=== PATIENT | female | born 1955 | race Caucasian/White ===

== ENCOUNTER 2019-11-12 16:45 | Inpatient (IN) ==
[2019-11-12 20:23] LABS: Basophils # (auto) 0.02 K/uL (0-0.2); Basophils % (auto) 0.2 %; Eosinophils # (auto) 0.32 K/uL (0-0.5); Eosinophils % (auto) 2.7 %; Hematocrit (blood only) 46.2 % (37-47); Hemoglobin 15.6 g/dL (12.0-16.0); Immature Granulocytes # (auto) 0.02 K/uL (0.00-0.02); Immature Granulocytes % (auto) 0.2 %; Lymphocytes # (auto) 3.11 K/uL (1.2-3.4); Lymphocytes % (auto) 26.6 %; Mean Corpuscular Hemoglobin 29.8 pg (25-34); Mean Corpuscular Hgb Conc 33.8 g/dL (32-36); Mean Corpuscular Volume 88.2 fL (80-100); Mean Platelet Volume 10.3 fL (7.4-10.4); Monocytes # (auto) 0.64 K/uL (0.11-0.59); Monocytes % (auto) 5.5 %; Neutrophils # (auto) 7.57 K/uL (1.4-6.5); Neutrophils % (auto) 64.8 %; Platelet Count 276 K/uL (130-400); RDW Coefficient of Variation 13.1 % (11.5-14.5); RDW Standard Deviation 42.3 fL (36.4-46.3); Red Blood Count 5.24 M/uL (4.2-5.4); White Blood Count 11.68 K/uL (4.8-10.8)
--- NOTE | 2019-11-12 20:24 | XRay Report ---
SINGLE VIEW CHEST CLINICAL HISTORY: Dyspnea. FINDINGS: An AP, portable, upright chest radiograph is obtained. No prior studies are available for c omparison at the time of dictation. The examination is degraded by portable technique and apical lord otic positioning. The heart is top normal for projection. The mediastinal contour is within normal li mits. The lungs and pleural spaces are clear. No pneumothorax is seen. The skeletal structures are os teopenic. The bony thorax is grossly intact. IMPRESSION: No active disease in the chest. ACT 112: Negative or not required by law. Electronically signed by: Jelani Kothari M.D. 11/12/2019 8:22 PM
[2019-11-12 20:41] LABS: Alanine Aminotransferase 56 U/L (12-78); Albumin Level 3.6 gm/dl (3.4-5.0); Aspartate Aminotransferase 40 U/L (15-37); Blood Urea Nitrogen 15 mg/dl (7-18); Carbon Dioxide 28 mmol/L (21-32); Chloride 107 mmol/L (98-107); Creatinine Clr Calc Pharmacy 41.5 ml/min; Est GFR (African American) 46.9; Est GFR (Non-African American) 40.4; Glucose 167 mg/dl (70-99); Magnesium 1.5 mg/dl (1.8-2.4); Sodium 143 mmol/L (136-145)
[2019-11-12 20:46] LABS: Albumin Globulin Ratio 0.8 (0.9-2); Alkaline Phosphatase 104 U/L (45-117); Bilirubin,Total 0.8 mg/dl (0.2-1); Globulin 4.7 gm/dl (2.5-4.0); NT Pro B Type Natriuretic Pept 62 pg/ml (0-900); Total Protein 8.3 gm/dl (6.4-8.2); Troponin I < 0.015 ng/ml (0-0.045)
[2019-11-12 20:56] LABS: D Dimer 3590 ug/L FEU (0-500)
--- NOTE | 2019-11-12 21:21 | Emergency Department Note ---
History of Present Illness General Chief Complaint: Shortness of Breath/Dyspnea Stated Complaint: SHORT OF BREATH - FATIGUE - HEAVINESS IN CHEST History of Present Illness Maximum Pain Intensity: 5 HPI Narrative: This patient is a 64-year-old female who presents the emergency department with her daughter for evaluation of dyspnea on exertion that has been getting progressively worse throughout the week. She denies any chest pain. No dizziness no heart palpitations. No sweating or diaphoresis reported. She has been eating and drinking normally. No fever or cough. She denies any known history of cardiac disease. The patient does not smoke. She reports that she has never had a stress test. No cardiac disease reported in her immediate family. Home Medications Home Medications Medication Instructions Recorded Confirmed Type atorvastatin 20 mg PO DAILY 11/12/19 11/12/19 History lisinopril-hydrochlorothiazide 1 - 2 tab PO DAILY 11/12/19 11/12/19 History venlafaxine 150 mg PO DAILY 11/12/19 11/12/19 History enoxaparin [Lovenox] 100 mg SQ Q12H #6 ml 11/15/19 Rx glipizide 5 mg PO DAILY@0800 30 Days #30 tab 11/15/19 Rx warfarin [Coumadin] 7.5 mg PO DAILY@1600 15 Days #15 11/15/19 Rx tab Allergies Allergy/AdvReac Type Severity Reaction Status Date / Time No Known Allergies Allergy Unverified 11/12/19 20:22 Past Med/Surg History Medical History Hyperlipidemia Hypertension Social History Smoking Status: Former smoker Hx Alcohol Use: No Preferred Language: Slovak Communication Ability: Effective [employer]fection[employer] D[employer] Machine Operator Required: No Beliefs That Will Affect Care: None Current Living Situation: Alone Other Information That Helps Us Care for You: No Feels Safe at Home: Yes Review of Systems A total of 10 systems reviewed and were otherwise negative Physical Exam Vital Signs: Vital Signs - 24 hr 11/12/19 16:55 11/12/19 20:14 11/12/19 20:28 Temperature 36.9 C Temperature Source Oral Pulse Rate 96 H 87 87 Pulse Rate from Sp O2 Sensor 88 87 Respiratory Rate 21 19 16 Respiratory Effort / Characteristics Non-Labored Sponta neous Respiratory Depth Normal Respiratory Patter n Regular Blood Pressure 184/90 H 192/86 H Blood Pressure Antonella n 121 113 Blood Pressure Pos ition Sitting Pulse Oximetry 93 94 95 Oxygen Delivery Me thod Room Air Sepsis Recent Feve r Within 48 Hours No Sepsis New/Unexpla ined Change in Men gabby Status N/A Sepsis Action Take n by Nursing No Action Required 11/12/19 20:30 11/12/19 20:31 11/12/19 21:00 Temperature Temperature Source Pulse Rate 86 86 87 Pulse Rate from Sp O2 Sensor 86 86 86 Respiratory Rate 13 17 18 Respiratory Effort / Characteristics Respiratory Depth Respiratory Patter n Blood Pressure 148/92 H 149/94 H Blood Pressure Antonella n 113 111 Blood Pressure Pos ition Pulse Oximetry 94 95 95 Oxygen Delivery Me thod Sepsis Recent Feve r Within 48 Hours Sepsis New/Unexpla ined Change in Men gabby Status Sepsis Action Take n by Nursing 11/12/19 21:01 11/12/19 21:32 11/12/19 21:33 Temperature Temperature Source Pulse Rate 83 107 H 89 Pulse Rate from Sp O2 Sensor 83 101 H 89 Respiratory Rate 18 20 19 Respiratory Effort / Characteristics Respiratory Depth Respiratory Patter n Blood Pressure 181/107 H Blood Pressure Antonella n 116 Blood Pressure Pos ition Pulse Oximetry 94 93 92 Oxygen Delivery Me thod Sepsis Recent Feve r Within 48 Hours Sepsis New/Unexpla ined Change in Men gabby Status Sepsis Action Take n by Nursing 11/12/19 22:00 11/12/19 22:30 Temperature Temperature Source Pulse Rate 87 89 Pulse Rate from Sp O2 Sensor 87 87 Respiratory Rate 16 16 Respiratory Effort / Characteristics Respiratory Depth Respiratory Patter n Blood Pressure Blood Pressure Antonella n Blood Pressure Pos ition Pulse Oximetry 94 94 Oxygen Delivery Me thod Sepsis Recent Feve r Within 48 Hours Sepsis New/Unexpla ined Change in Men gabby Status Sepsis Action Take n by Nursing Constitutional: WD/WN, vitals as above Eyes: EOM intact bilaterally ENMT: external ear and nose normal, oropharynx normal Neck: trachea midline Respiratory: normal respiratory effort, lungs clear to auscultation Cardiovascular: RRR, no murmur, no edema Gastrointestinal (Abdomen): normal bowel sounds, soft, nontender, no hepatosplenomegaly Musculoskeletal: no cyanosis or clubbing, extremities motor strength 5/5 Skin: no rashes, warm and dry Neurologic: Alert and oriented x3. No focal motor deficits. Psychiatric: Acting appropriately Course Course Patient was seen and examined Vital signs including blood pressure were reviewed medications list was verified with patient Labs were obtained, and a saline lock was established An EKG was performed and reviewed. The patient was put on a monitor. An order was placed for continuous cardiac monitoring. The monitor shows a rate of 80 with normal sinus rhythm. Imaging was performed and reviewed Stat read contacted my supervising physician. He reevaluated the patient who was stable. They discussed the results. He voiced understanding The case was discussed with the [facility] hospitalist. They kindly agreed to evaluate the patient for likely inpatient admission. At this point, they did not want any anticoagulation started. The case was discussed with the hospitalist team. They agreed to evaluate the patient for likely inpatient management. Consultations Consultation #1: [facility] hospitalist group Administered Medications Discontinued Medications Amlodipine Besylate (Norvasc) 2.5 mg PO NOW [facility] Stop: 11/12/19 23:16 Last Admin: 11/13/19 00:42 Dose: 2.5 mg Documented by: [id number] Amlodipine Besylate (Norvasc) 2.5 mg PO [facility] Stop: 12/13/19 20:59 Last Admin: 11/14/19 20:37 Dose: 2.5 mg Documented by: [id number] Admin: 11/13/19 20:21 Dose: 2.5 mg Documented by: [id number] Atorvastatin Calcium (Lipitor) 20 mg PO DAILY [facility] Stop: 12/13/19 08:59 Last Admin: 11/15/19 07:58 Dose: 20 mg Documented by: [id number] Admin: 11/14/19 08:26 Dose: 20 mg Documented by: [id number] Admin: 11/13/19 08:59 Dose: 20 mg Documented by: [id number] Enoxaparin Sodium (Lovenox) 100 mg SQ ONE ONE Stop: 11/15/19 16:01 Last Admin: 11/15/19 15:58 Dose: 100 mg Documented by: [id number] Glipizide (Glucotrol) 5 mg PO DAILY@0800 [facility] Stop: 12/13/19 16:59 Last Admin: 11/15/19 07:58 Dose: 5 mg Documented by: [id number] Admin: 11/14/19 08:24 Dose: 5 mg Documented by: [id number] Admin: 11/13/19 17:35 Dose: 5 mg Documented by: [id number] Heparin Sodium/Dextrose () 1 ea IV Q15M [facility]; Protocol Stop: 12/12/19 23:46 Last Admin: 11/13/19 02:43 Dose: Not Given Documented by: [id number] Admin: 11/13/19 02:43 Dose: Not Given Documented by: [id number] Admin: 11/13/19 02:12 Dose: Not Given Documented by: [id number] Admin: 11/13/19 02:11 Dose: Not Given Documented by: [id number] Admin: 11/13/19 01:02 Dose: Not Given Documented by: [id number] Heparin Sodium/Dextrose (Heparin Sodium/Dextrose) Confirm Administered Dose 25,000 units IV .STK-MED ONE Stop: 11/13/19 00:31 Last Admin: 11/13/19 00:41 Dose: 23 ml Documented by: [id number] Cosigned by: [id number] Magnesium Sulfate/Dextrose (Magnesium Sulfate / D5w) 1 gm in 100 mls @ 100 mls/hr IV NOW STA Stop: 11/12/19 22:25 Last Infusion: 11/12/19 23:40 Dose: 0 mls/hr Documented by: [id number] Admin: 11/12/19 22:02 Dose: 100 mls/hr Documented by: [id number] Heparin Sodium/Dextrose (Heparin Sodium/Dextrose) 25,000 units in 500 mls @ 23 mls/hr IV .[id number] [facility]; Protocol Stop: 11/15/19 14:00 Last Titration: 11/15/19 13:48 Dose: 0 units/hr, 0 mls/hr Documented by: [id number] Cosigned by: [id number] Titration: 11/15/19 06:53 Dose: 1,150 units/hr, 23 mls/hr Documented by: [id number] Cosigned by: [id number] Titration: 11/14/19 22:55 Dose: 1,150 units/hr, 23 mls/hr Documented by: [id number] Cosigned by: [id number] Admin: 11/14/19 19:22 Dose: 1,150 units/hr, 23 mls/hr Documented by: [id number] Cosigned by: [id number] Titration: 11/14/19 18:54 Dose: 1,150 units/hr, 23 mls/hr Documented by: [id number] Cosigned by: [id number] Titration: 11/14/19 15:08 Dose: 1,150 units/hr, 23 mls/hr Documented by: [id number] Cosigned by: [id number] Titration: 11/14/19 07:22 Dose: 1,150 units/hr, 23 mls/hr Documented by: [id number] Cosigned by: [id number] Titration: 11/14/19 06:56 Dose: 1,150 units/hr, 23 mls/hr Documented by: [id number] Cosigned by: [id number] Titration: 11/13/19 22:46 Dose: 1,150 units/hr, 23 mls/hr Documented by: [id number] Cosigned by: [id number] Admin: 11/13/19 21:09 Dose: 1,150 units/hr, 23 mls/hr Documented by: [id number] Cosigned by: [id number] Titration: 11/13/19 21:09 Dose: 1,150 units/hr, 23 mls/hr Documented by: [id number] Cosigned by: [id number] Titration: 11/13/19 19:10 Dose: 1,150 units/hr, 23 mls/hr Documented by: [id number] Cosigned by: [id number] Titration: 11/13/19 15:55 Dose: 1,150 units/hr, 23 mls/hr Documented by: [id number] Cosigned by: [id number] Titration: 11/13/19 07:54 Dose: 1,300 units/hr, 26 mls/hr Documented by: [id number] Cosigned by: [id number] Titration: 11/13/19 07:08 Dose: 1,150 units/hr, 23 mls/hr Documented by: [id number] Cosigned by: [id number] Admin: 11/13/19 01:01 Dose: Not Given Documented by: [id number] Admin: 11/13/19 01:00 Dose: 1,150 units/hr, 23 mls/hr Documented by: [id number] Cosigned by: [id number] Lactated Ringer's (Lr) 1,000 mls @ 60 mls/hr IV .[id number] ONE Stop: 11/13/19 18:46 Last Infusion: 11/13/19 05:16 Dose: 0 mls/hr Documented by: [id number] Admin: 11/13/19 02:27 Dose: 60 mls/hr Documented by: [id number] Magnesium Sulfate/Dextrose (Magnesium Sulfate / D5w) 1 gm in 100 mls @ 50 mls/hr IV ONE ONE Stop: 11/13/19 04:06 Last Infusion: 11/13/19 04:42 Dose: 0 mls/hr Documented by: [id number] Admin: 11/13/19 02:24 Dose: 50 mls/hr Documented by: [id number] Ceftriaxone Sodium 2,000 mg/ (Dextrose) 70 mls @ 100 mls/hr IV Q24H [facility]; Protocol Stop: 11/23/19 05:29 Last Infusion: 11/15/19 06:42 Dose: 0 mls/hr Documented by: [id number] Admin: 11/15/19 05:50 Dose: 100 mls/hr Documented by: [id number] Infusion: 11/14/19 06:09 Dose: 0 mls/hr Documented by: [id number] Admin: 11/14/19 05:25 Dose: 100 mls/hr Documented by: [id number] Infusion: 11/13/19 06:09 Dose: 0 mls/hr Documented by: [id number] Admin: 11/13/19 05:39 Dose: 100 mls/hr Documented by: [id number] Potassium Chloride/Sodium Chloride (Normal Saline W/20 Meq Kcl) 20 meq in 1,000 mls @ 50 mls/hr IV .Q20H ONE Stop: 11/14/19 00:55 Last Infusion: 11/14/19 01:42 Dose: 0 mls/hr Documented by: [id number] Admin: 11/13/19 05:39 Dose: 50 mls/hr Documented by: [id number] Heparin Sodium (Porcine) 3,000 (units/ Syringe) 3 mls @ 10 mls/min IV ONE ONE Stop: 11/13/19 08:18 Last Admin: 11/13/19 08:55 Dose: 10 mls/min Documented by: [id number] Cosigned by: [id number] Insulin Aspart (Novolog Flexpen) 0 units SC ACHS [facility] Stop: 12/13/19 02:06 Last Admin: 11/13/19 12:24 Dose: 5 units Documented by: [id number] Cosigned by: [id number] Admin: 11/13/19 08:56 Dose: 6 units Documented by: [id number] Cosigned by: [id number] Admin: 11/13/19 02:28 Dose: 3 units Documented by: [id number] Cosigned by: [id number] Insulin Glargine (Lantus Solostar Pen) 10 units SC ONE ONE Stop: 11/13/19 07:01 Last Admin: 11/13/19 07:47 Dose: 10 units Documented by: [id number] Cosigned by: [id number] Insulin Glargine (Lantus Solostar Pen) 10 units SC BID [facility] Stop: 12/13/19 22:59 Last Admin: 11/15/19 07:58 Dose: 10 units Documented by: [id number] Cosigned by: [id number] Admin: 11/14/19 20:38 Dose: 10 units Documented by: [id number] Cosigned by: [id number] Admin: 11/14/19 08:26 Dose: 10 units Documented by: [id number] Cosigned by: [id number] Admin: 11/13/19 23:08 Dose: 10 units Documented by: [id number] Cosigned by: [id number] Ioversol (Optiray 320 125ml) 119 ml IV ONCE PRN PRN Reason: Interaction Checking Stop: 11/16/19 21:23 Last Admin: 11/12/19 21:25 Dose: 119 ml Documented by: [id number] Miscellaneous (Stop Order) 1 ea N/A ONE ONE Stop: 11/15/19 14:01 Last Admin: 11/15/19 13:48 Dose: 1 ea Documented by: [id number] Venlafaxine HCl (Effexor Extended Release) 150 mg PO NOW STA Stop: 11/12/19 23:45 Last Admin: 11/13/19 00:42 Dose: 150 mg Documented by: [id number] Venlafaxine HCl (Effexor Extended Release) 150 mg PO HS [facility] Stop: 12/13/19 20:59 Last Admin: 11/14/19 20:37 Dose: 150 mg Documented by: [id number] Admin: 11/13/19 20:21 Dose: 150 mg Documented by: [id number] Warfarin Sodium (Coumadin) 7.5 mg PO DAILY@1600 [facility] Stop: 12/15/19 15:59 Last Admin: 11/15/19 15:58 Dose: 7.5 mg Documented by: [id number] Warfarin Sodium (Coumadin) 7.5 mg PO NOW ONE Stop: 11/14/19 17:01 Last Admin: 11/14/19 17:15 Dose: 7.5 mg Documented by: [id number] Medical Decision Making Differential Diagnosis Differential diagnosis: Pulmonary embolus, infectious etiology, acute myocardial infarction, cardiac arrhythmia, anemia, thyroid abnormality, pneumothorax, pneumonia, bronchitis, pericarditis, electrolyte imbalance, among others This patient is a pleasant 64-year-old female presents emergency department complaining of shortness of breath on exertion for the last week. On exam, her vital signs are stable. EKG did not show any acute signs of ischemia or infarction. It was compared to a prior EKG, which appears unchanged. Troponin is negative. The d-dimer was significantly elevated. For this reason, we proceeded with a CT to rule out PE. The CAT scan is consistent with bilateral pulmonary emboli. They were fairly extensive. For this reason, the hospitalist was consulted. They would likely admit the patient for anticoagulation and monitoring. Laboratory Data Result diagrams: 11/13/19 06:48 11/13/19 06:48 Lab Results 11/12/19 11/12/19 11/12/19 Range/Units 20:10 20:10 20:10 WBC 11.68 H (4.8-10.8) K/uL RBC 5.24 (4.2-5.4) M/uL Hgb 15.6 (12.0-16.0) g/dL Hct 46.2 (37-47) % MCV 88.2 (80-100) fL MCH 29.8 (25-34) pg MCHC 33.8 (32-36) g/dL RDW Std Deviation 42.3 (36.4-46.3) fL RDW Coeff of Jenn 13.1 (11.5-14.5) % Plt Count 276 (130-400) K/uL MPV 10.3 (7.4-10.4) fL Immature Gran % (Auto) 0.2 % Neut % (Auto) 64.8 % Lymph % (Auto) 26.6 % [place] % (Auto) 5.5 % Eos % (Auto) 2.7 % Baso % (Auto) 0.2 % Neut # (Auto) 7.57 H (1.4-6.5) K/uL Lymph # (Auto) 3.11 (1.2-3.4) K/uL [place] # (Auto) 0.64 H (0.11-0.59) K/uL Eos # (Auto) 0.32 (0-0.5) K/uL Baso # (Auto) 0.02 (0-0.2) K/uL Immature Gran # (Auto) 0.02 (0.00-0.02) K/uL APTT (21.0-31.0) Seconds PTT Ratio D-Dimer 3590 H* (0-500) ug/L FEU Sodium 143 (136-145) mmol/L Potassium 4.0 (3.5-5.1) mmol/L Chloride 107 (98-107) mmol/L Carbon Dioxide 28 (21-32) mmol/L Anion Gap 8.0 (3-11) BUN 15 (7-18) mg/dl Creatinine 1.36 H (0.6-1.2) mg/dl Est Cr Clr Drug Dosing 41.5 ml/min Est GFR ( Amer) 46.9 Est GFR (Non-Af Amer) 40.4 BUN/Creatinine Ratio 11.0 (10-20) Glucose 167 H (70-99) mg/dl Calcium 10.0 (8.5-10.1) mg/dl Magnesium 1.5 L (1.8-2.4) mg/dl Total Bilirubin 0.8 (0.2-1) mg/dl AST 40 H (15-37) U/L ALT 56 (12-78) U/L Alkaline Phosphatase 104 (45-117) U/L Troponin I < 0.015 (0-0.045) ng/ml NT-Pro-B Natriuret Pep 62 (0-900) pg/ml Total Protein 8.3 H (6.4-8.2) gm/dl Albumin 3.6 (3.4-5.0) gm/dl Globulin 4.7 H (2.5-4.0) gm/dl Albumin/Globulin Ratio 0.8 L (0.9-2) Urine Color Urine Appearance (Clear) Urine pH (4.5-7.5) Ur Specific [place] (1.000-1.030) Urine Protein (Negative) Urine Glucose (UA) (Negative) Urine Ketones (Negative) Urine Blood (Negative) Urine Nitrite (Negative) Urine Bilirubin (Negative) Urine Urobilinogen (Negative) Ur Leukocyte Esterase (Negative) Urine WBC (Auto) (0-5) /hpf Urine RBC (Auto) (0-4) /hpf U Hyaline Cast (Auto) (0-5) /lpf U Epithel Cells (Auto) (0-5) /lpf Urine Bacteria (Auto) (Negative) 11/12/19 11/12/19 Range/Units 20:10 20:10 WBC (4.8-10.8) K/uL RBC (4.2-5.4) M/uL Hgb (12.0-16.0) g/dL Hct (37-47) % MCV (80-100) fL MCH (25-34) pg MCHC (32-36) g/dL RDW Std Deviation (36.4-46.3) fL RDW Coeff of Jenn (11.5-14.5) % Plt Count (130-400) K/uL MPV (7.4-10.4) fL Immature Gran % (Auto) % Neut % (Auto) % Lymph % (Auto) % [place] % (Auto) % Eos % (Auto) % Baso % (Auto) % Neut # (Auto) (1.4-6.5) K/uL Lymph # (Auto) (1.2-3.4) K/uL [place] # (Auto) (0.11-0.59) K/uL Eos # (Auto) (0-0.5) K/uL Baso # (Auto) (0-0.2) K/uL Immature Gran # (Auto) (0.00-0.02) K/uL APTT 24.8 (21.0-31.0) Seconds PTT Ratio 0.9 D-Dimer (0-500) ug/L FEU Sodium (136-145) mmol/L Potassium (3.5-5.1) mmol/L Chloride (98-107) mmol/L Carbon Dioxide (21-32) mmol/L Anion Gap (3-11) BUN (7-18) mg/dl Creatinine (0.6-1.2) mg/dl Est Cr Clr Drug Dosing ml/min Est GFR ( Amer) Est GFR (Non-Af Amer) BUN/Creatinine Ratio (10-20) Glucose (70-99) mg/dl Calcium (8.5-10.1) mg/dl Magnesium (1.8-2.4) mg/dl Total Bilirubin (0.2-1) mg/dl AST (15-37) U/L ALT (12-78) U/L Alkaline Phosphatase (45-117) U/L Troponin I (0-0.045) ng/ml NT-Pro-B Natriuret Pep (0-900) pg/ml Total Protein (6.4-8.2) gm/dl Albumin (3.4-5.0) gm/dl Globulin (2.5-4.0) gm/dl Albumin/Globulin Ratio (0.9-2) Urine Color Yellow Urine Appearance Clear (Clear) Urine pH 5.0 (4.5-7.5) Ur Specific [place] 1.024 (1.000-1.030) Urine Protein Trace H (Negative) Urine Glucose (UA) Negative (Negative) Urine Ketones Trace H (Negative) Urine Blood Trace H (Negative) Urine Nitrite Negative (Negative) Urine Bilirubin Negative (Negative) Urine Urobilinogen Negative (Negative) Ur Leukocyte Esterase 1+ H (Negative) Urine WBC (Auto) >30 H (0-5) /hpf Urine RBC (Auto) 5-10 H (0-4) /hpf U Hyaline Cast (Auto) 5-10 H (0-5) /lpf U Epithel Cells (Auto) 10-20 H (0-5) /lpf Urine Bacteria (Auto) Negative (Negative) MDM Narrative see above Impression & Plan Pulmonary emboli Discharge Plan Visit Data *Final* Discharge Date/Time: 11/13/19 01:36 Chief Complaint: Shortness of Breath/Dyspnea Stated Complaint: SHORT OF BREATH - FATIGUE - HEAVINESS IN CHEST ED Provider: Edwin Dior ED Midlevel Provider: Bharti Rogers Discharge Problem: Pulmonary emboli Patient Disposition: Admitted As Inpatient Condition: Good Discharge Instructions Interventions: ED Discharge Assessment Last Done: 11/13/19 01:36
[2019-11-12] MEDS ORDERED: OPTIRAY 320 125ml IV PRN (21:24)
[2019-11-12] MEDS ORDERED: MAGNESIUM SULFATE / D5W 1 GM/100 ML BAG IV STA (21:26)
[2019-11-12 23:05] LABS: Partial Thromboplastin Ratio 0.9; Partial Thromboplastin Time 24.8 Seconds (21.0-31.0)
[2019-11-12] MEDS ORDERED: AMLODIPINE BESYLATE 5 MG TAB PO STA (23:15)
[2019-11-12 23:29] LABS: Appearance Urine Clear (Clear); Bacteria Urine Automated Negative (Negative); Bilirubin Urine Negative (Negative); Blood Urine Trace (Negative); Color Urine Yellow; Glucose Urine UA Negative (Negative); Ketones Urine Trace (Negative); Leukocyte Esterase Urine 1+ (Negative); Nitrite Urine Negative (Negative); Protein Urine Trace (Negative); Specific Gravity Urine 1.024 (1.000-1.030); Urobilinogen Urine Negative (Negative); WBC Urine Automated >30 /hpf (0-5)
[2019-11-12] MEDS ORDERED: VENLAFAXINE HCL XR 150 MG CAPXR PO STA (23:44)
--- NOTE | 2019-11-12 23:46 | History & Physical Report ---
Date of Service November 12, 2019 Assessment & Plan (1) Pulmonary emboli: First occurrence Unprovoked event Rule out LE clot origin Rule out hypercoagulable state hypertension, slightly elevated secondary discomfort ARF, mild clinical dehydration given ketonuria DM 2 on oral medications, well-controlled as of last hemoglobin A1c of 7 last 2017 anxiety/mood disorder, at baseline Complicated UTI, no sepsis Medical telemetry LE venous Dopplers Hypercoagulable work-up prior to IV heparin initiation Defer discussion regarding choice of oral anticoagulation between AM provider and patient. (Patient interested in NOAC tx). Monitor creatinine response to IVF, hold MOISES inhibitor, home diuretic until creatinine back to baseline Amlodipine daily while above BP meds on hold due to kidney dysfunction. Follow urine cultures, IV Ceftriaxone Basal insulin, ISS BG goal [id number], update hemoglobin A1c DVT prophylaxis with IV heparin Full code Text document was generated using [employer] voice recognition software. It may contain grammatical or spelling errors. Kindly contact undersigned for clarification of any documentation item in question. History of Present Illness Chief Complaint: Shortness of breath, shoulder blade pain Primary Care Provider: Nuria Ward PA-C History obtained from patient, family, and records. Medical history significant for hypertension, hyperlipidemia, DM 2 on oral medications, anxiety/mood disorder as per records, past tobacco abuse. Patient short of breath the last week especially on exertion with back pain going to her shoulder blades. Usual dry cough symptoms without flulike symptoms. Feeling off. Patient with bladder discomfort symptoms without fever chills for about a few weeks. No headache. Not moving a lot at home as per patient secondary to pandemic. Patient brought by daughter to the emergency room. Medical History as above 2009 normal colonoscopy 2014 normal mammogram Surgical History : section Family History : Heart disease, ovarian cancer; no blood clots Personal/Social history :Past tobacco abuse, occasional EtOH intake, retired senior care hotel receptionist Allergies Allergy/AdvReac Type Severity Reaction Status Date / Time No Known Allergies Allergy Unverified 11/12/19 20:22 Home Medications Home Medications Medication Instructions Recorded Confirmed Type atorvastatin 20 mg PO DAILY 11/12/19 11/12/19 History lisinopril-hydrochlorothiazide 1 - 2 tab PO DAILY 11/12/19 11/12/19 History venlafaxine 150 mg PO DAILY 11/12/19 11/12/19 History Past Med/Surg History Medical History Hyperlipidemia Hypertension Social History Smoking Status: Former smoker Hx Alcohol Use: No Preferred Language: Maori Communication Ability: Effective Process Control Manager Required: No Beliefs That Will Affect Care: None Current Living Situation: Alone Other Information That Helps Us Care for You: No Feels Safe at Home: Yes Review of Systems Review of Systems: As per HPI, all 10 systems reviewed, all other ROS negative Physical Exam Physical Exam: GENERAL: Slightly anxious, morbidly obese, no respiratory distress SKIN: Normal color, warm HEENT: Bespectacled, [place] palpebral conjunctivae, no ptosis, dry buccal mucosa NECK : Supple, short neck, no tenderness CHEST : CTA, no tenderness HEART : RRR, no obvious murmurs ABDOMEN: Some distention, nontender EXTREMITIES : Minimal LE swelling, no LE tenderness, no other conspicuous deformities noted NEUROLOGIC : Coherent, no facial asymmetry, no other gross focality Results & Data Results & Data ([facility]) Vital Signs (Past 12 Hours) Vital Signs Temp Pulse Resp BP Pulse Ox 11/12/19 22:30 89 16 94 11/12/19 22:00 87 16 94 11/12/19 21:33 89 19 181/107 H 92 11/12/19 21:32 107 H 20 93 11/12/19 21:01 83 18 94 11/12/19 21:00 87 18 149/94 H 95 11/12/19 20:31 86 17 95 11/12/19 20:30 86 13 148/92 H 94 11/12/19 20:28 87 16 95 11/12/19 20:14 87 19 192/86 H 94 11/12/19 16:55 36.9 C 96 H 21 184/90 H 93 Laboratory Results Laboratory Results WBC 11.68 K/uL (4.8-10.8) H 11/12/19 20:10 RBC 5.24 M/uL (4.2-5.4) 11/12/19 20:10 Hgb 15.6 g/dL (12.0-16.0) 11/12/19 20:10 Hct 46.2 % (37-47) 11/12/19 20:10 MCV 88.2 fL (80-100) 11/12/19 20:10 MCH 29.8 pg (25-34) 11/12/19 20:10 MCHC 33.8 g/dL (32-36) 11/12/19 20:10 RDW Std Deviation 42.3 fL (36.4-46.3) 11/12/19 20:10 RDW Coeff of Jenn 13.1 % (11.5-14.5) 11/12/19 20: Plt Count 276 K/uL (130-400) 11/12/19 20:10 MPV 10.3 fL (7.4-10.4) 11/12/19 20:10 Immature Gran % (Auto) 0.2 % 11/12/19 20:10 Neut % (Auto) 64.8 % 11/12/19 20:10 Lymph % (Auto) 26.6 % 11/12/19 20:10 [place] % (Auto) 5.5 % 11/12/19 20:10 Eos % (Auto) 2.7 % 11/12/19 20:10 Baso % (Auto) 0.2 % 11/12/19 20:10 Neut # (Auto) 7.57 K/uL (1.4-6.5) H 11/12/19 20:10 Lymph # (Auto) 3.11 K/uL (1.2-3.4) 11/12/19 20:10 [place] # (Auto) 0.64 K/uL (0.11-0.59) H 11/12/19 20:10 Eos # (Auto) 0.32 K/uL (0-0.5) 11/12/19 20:10 Baso # (Auto) 0.02 K/uL (0-0.2) 11/12/19 20:10 Immature Gran # (Auto) 0.02 K/uL (0.00-0.02) 11/12/19 20:10 APTT 24.8 Seconds (21.0-31.0) 11/12/19 20:10 PTT Ratio 0.9 11/12/19 20:10 D-Dimer 3590 ug/L FEU (0-500) H* 11/12/19 20:10 Sodium 143 mmol/L (136-145) 11/12/19 20:10 Potassium 4.0 mmol/L (3.5-5.1) 11/12/19 20:10 Chloride 107 mmol/L (98-107) 11/12/19 20:10 Carbon Dioxide 28 mmol/L (21-32) 11/12/19 20:10 Anion Gap 8.0 (3-11) 11/12/19 20:10 BUN 15 mg/dl (7-18) 11/12/19 20:10 Creatinine 1.36 mg/dl (0.6-1.2) H 11/12/19 20:10 Est Cr Clr Drug Dosing 41.5 ml/min 11/12/19 20:10 Est GFR ( Amer) 46.9 11/12/19 20:10 Est GFR (Non-Af Amer) 40.4 11/12/19 20:10 BUN/Creatinine Ratio 11.0 (10-20) 11/12/19 20:10 Glucose 167 mg/dl (70-99) H 11/12/19 20:10 Calcium 10.0 mg/dl (8.5-10.1) 11/12/19 20: Magnesium 1.5 mg/dl (1.8-2.4) L 11/12/19 20:10 Total Bilirubin 0.8 mg/dl (0.2-1) 11/12/19 20:10 AST 40 U/L (15-37) H 11/12/19 20:10 ALT 56 U/L (12-78) 11/12/19 20:10 Alkaline Phosphatase 104 U/L (45-117) 11/12/19 20:10 Troponin I < 0.015 ng/ml (0-0.045) 11/12/19 20:10 NT-Pro-B Natriuret Pep 62 pg/ml (0-900) 11/12/19 20:10 Total Protein 8.3 gm/dl (6.4-8.2) H 11/12/19 20:10 Albumin 3.6 gm/dl (3.4-5.0) 11/12/19 20:10 Globulin 4.7 gm/dl (2.5-4.0) H 11/12/19 20:10 Albumin/Globulin Ratio 0.8 (0.9-2) L 11/12/19 20:10 Urine Color Yellow 11/12/19 20:10 Urine Appearance Clear (Clear) 11/12/19 20:10 Urine pH 5.0 (4.5-7.5) 11/12/19 20:10 Ur Specific [place] 1.024 (1.000-1.030) 11/12/19 20:10 Urine Protein Trace (Negative) H 11/12/19 20:10 Urine Glucose (UA) Negative (Negative) 11/12/19 20:10 Urine Ketones Trace (Negative) H 11/12/19 20:10 Urine Blood Trace (Negative) H 11/12/19 20:10 Urine Nitrite Negative (Negative) 11/12/19 20:10 Urine Bilirubin Negative (Negative) 11/12/19 20:10 Urine Urobilinogen Negative (Negative) 11/12/19 20:10 Ur Leukocyte Esterase 1+ (Negative) H 11/12/19 20:10 Urine WBC (Auto) >30 /hpf (0-5) H 11/12/19 20:10 Urine RBC (Auto) 5-10 /hpf (0-4) H 11/12/19 20:10 U Hyaline Cast (Auto) 5-10 /lpf (0-5) H 11/12/19 20:10 U Epithel Cells (Auto) 10-20 /lpf (0-5) H 11/12/19 20:10 Urine Bacteria (Auto) Negative (Negative) 11/12/19 20:10 Diagnostic Findings CTA initial read: Multifocal acute PE involving all lobes. Moderate clot burden. No evidence of RV strain. No pulmonary infarct. EKG as per my interpretation: Rate 95, NSR, normal axis, diffuse T wave abnormalities
[2019-11-13] MEDS ORDERED: HEPARIN 25000 UNIT/500 ML D5W IV ONE (00:30)
[2019-11-13] MEDS: HEPARIN SODIUM/DEXTROSE 25,000 UNITS/500 ML BAG IV SCH ×3 (01:00→21:09)
[2019-11-13] MEDS: Heparin IV Standard *NO* Bolus IV SCH ×4 (01:02→02:43)
[2019-11-13] MEDS ORDERED: HYDROmorphone INJ 0.5 MG/0.5 ML SYR IV PRN (02:07)
[2019-11-13] MEDS ORDERED: LACTATED RINGER'S 1,000 ML IV ONE (02:07)
[2019-11-13] MEDS ORDERED: CARBOHYDRATES FOR HYPOGLYCEMIA PO PRN (02:07)
[2019-11-13] MEDS ORDERED: GLUCOSE 40% GEL 15 GM TUBE PO PRN (02:07)
[2019-11-13] MEDS ORDERED: GLUCOSE 10 TABS/TUBE PO PRN (02:07)
[2019-11-13] MEDS ORDERED: PROMETHAZINE HCL 12.5 MG in SODIUM CHLORIDE 0.9% 50 ML IV PRN (02:07)
[2019-11-13] MEDS ORDERED: GLUCAGON FOR INJ 1 MG VIAL SQ PRN (02:07)
[2019-11-13] MEDS ORDERED: ACETAMINOPHEN 325 MG TAB PO PRN (02:07)
[2019-11-13] MEDS ORDERED: LORazepam 0.5 MG/1 ML VIAL IV PRN (02:07)
[2019-11-13] MEDS ORDERED: DEXTROSE 50% 50 ML SYRINGE IV PRN (02:07)
[2019-11-13] MEDS ORDERED: TRAMADOL HCL 50 MG TABLET PO PRN (02:07)
[2019-11-13] MEDS ORDERED: MAGNESIUM SULFATE / D5W 1 GM/100 ML BAG IV ONE (02:07)
[2019-11-13] MEDS: INSULIN ASPART 100 UNITS/ML 3 ML PEN SC SCH ×3 (02:28→12:24)
[2019-11-13] MEDS ORDERED: NSS + 20MEQ KCL 20 MEQ/1,000 ML BAG IV ONE (04:56)
[2019-11-13] MEDS: cefTRIAXone SODIUM 2,000 MG in DEXTROSE 5% 50 ML IV SCH (05:39)
--- NOTE | 2019-11-13 06:44 | Ultrasound Report ---
BILATERAL LOWER EXTREMITY VENOUS DOPPLER CLINICAL HISTORY: Pulmonary emboli protocol. COMPARISON STUDY: No previous studies for comparison. TECHNIQUE: Sonography of the deep venous system of the bilateral lower extremities was performed. Co mpression and augmentation were evaluated. FINDINGS: The bilateral common femoral, superficial femoral and popliteal veins were compressible. A ugmentation was normal. Flow was shown within the deep calf vessels. IMPRESSION: No evidence of deep venous thrombus within the bilateral lower extremities. ACT 112: Negative or not required by law. Electronically signed by: Duncan Cortés M.D. 11/13/2019 6:42 AM
[2019-11-13] MEDS ORDERED: INSULIN GLARGINE SOLOSTAR 100 UNITS/ML 3 ML PEN SC ONE (07:00)
--- NOTE | 2019-11-13 07:17 | CT Scan Report ---
CT angio chest PE protocol CT DOSE: 767.35 mGy.cm HISTORY: 64 years-old Female with SOB. Acute shortness of breath TECHNIQUE: Multiple CTA images of the chest were obtained after the intravenous administration of 119 ml Optiray 320. Coronal and sagittal MIPS were obtained from the axial data set and were submitted for review. All measurements were obtained according to NASCET criteria. A dose lowering technique w as utilized adhering to the principles of ALARA. COMPARISON: Chest radiograph of same day FINDINGS: CTA: Heart is normal in size. No pericardial effusion. Mild mixed plaque of the thoracic aortic arch witho ut aneurysm or dissection. 4 vessel morphology of aortic arch. The pulmonary arterial tree is opacifi ed to the level of the subsegmental branches. Segmental and subsegmental filling defects are noted wi thin the left lower lobe. Lobar, segmental and subsegmental pulmonary emboli are noted within the rig ht upper, middle and lower lobes. No evidence of right heart strain. CT CHEST: Unremarkable thyroid. No pathologically enlarged lymph nodes. No pneumothorax, pleural effusion or ov ert pulmonary edema. No large pulmonary infarct. Minimal dependent subsegmental bibasilar atelectasis . There are no suspicious pulmonary nodules or masses. The central airways appear to be patent. There are a few scattered nonspecific mildly prominent periesophageal lymph nodes. Tiny hiatal hernia . Hepatic steatosis. The soft tissues are unremarkable. Degenerative changes of the shoulders and spi ne. No suspicious bone lesions. IMPRESSION: 1. Right greater than left lobar, segmental and subsegmental pulmonary emboli as above. No evidence o f right heart strain or pulmonary infarct. 2. No pleural effusion or adenopathy. 3. Hepatic steatosis. 4. Tiny hiatal hernia. ACT 112: Negative or not required by law. The above report was generated using voice recognition software. It may contain grammatical, syntax o r spelling errors. Electronically signed by: Cl Stevenson M.D. 11/13/2019 7:16 AM
[2019-11-13 07:39] LABS: Basophils # (auto) 0.02 K/uL (0-0.2); Basophils % (auto) 0.2 %; Eosinophils # (auto) 0.34 K/uL (0-0.5); Eosinophils % (auto) 3.6 %; Hematocrit (blood only) 42.5 % (37-47); Hemoglobin 13.9 g/dL (12.0-16.0); Immature Granulocytes # (auto) 0.03 K/uL (0.00-0.02); Immature Granulocytes % (auto) 0.3 %; Lymphocytes % (auto) 24.2 %; Mean Corpuscular Hgb Conc 32.7 g/dL (32-36); Mean Corpuscular Volume 88.5 fL (80-100); Mean Platelet Volume 10.5 fL (7.4-10.4); Monocytes % (auto) 7.4 %; Neutrophils # (auto) 6.11 K/uL (1.4-6.5); Neutrophils % (auto) 64.3 %; Platelet Count 275 K/uL (130-400); RDW Coefficient of Variation 13.2 % (11.5-14.5); RDW Standard Deviation 43.1 fL (36.4-46.3)
[2019-11-13 07:48] LABS: INR 1.1 (0.9-1.1); Partial Thromboplastin Ratio 1.6; Partial Thromboplastin Time 44.1 Seconds (21.0-31.0); Prothrombin Time 11.2 Seconds (9.0-12.0)
[2019-11-13 08:05] LABS: BUN Creatinine Ratio 10.7 (10-20); Calcium 8.8 mg/dl (8.5-10.1); Creatinine Clr Calc Pharmacy 46.9 ml/min; Est GFR (African American) 54.5; Est GFR (Non-African American) 47.1; Magnesium 2.1 mg/dl (1.8-2.4); Potassium 3.5 mmol/L (3.5-5.1)
[2019-11-13] MEDS ORDERED: HEPARIN IV BOLUS 3,000 UNITS in SYRINGE 0 ML IV ONE (08:17)
[2019-11-13] MEDS: ATORVASTATIN 20 MG TAB PO SCH (08:59)
[2019-11-13] MEDS ORDERED: INSULIN GLARGINE SOLOSTAR 100 UNITS/ML 3 ML PEN SC SCH (09:00)
--- NOTE | 2019-11-13 09:12 | Hospitalist Progress Note ---
Date of Service November 13, 2019 Assessment & Plan (1) Pulmonary emboli: First occurrence Unprovoked event Rule out LE clot origin LE venous Dopplers - negative Rule out hypercoagulable state Hypercoagulable work-up prior to IV heparin initiation Discussed choice of oral anticoagulation, d/t pt's BMI she may have to be on warfarin Cont. IV heparin Medical telemetry Hypertension, slightly elevated secondary discomfort Amlodipine daily while above BP meds on hold due to kidney dysfunction. ARF, mild clinical dehydration given ketonuria Monitor creatinine response to IVF, hold MOISES inhibitor, home diuretic until creatinine back to baseline DM 2 , was on oral medications, was well-controlled as of last hemoglobin A1c of 7 last 2017 Current A1c elevated Pt is not taking her metformin d/t GI discomfort Start glipizide, pt determined to loose weight (diet and exercise program planned with her daughter) Discussed she will need close follow up w/ PCP and possibly dietitian anxiety/mood disorder, at baseline Complicated UTI, no sepsis Follow urine cultures, IV Ceftriaxone DVT prophylaxis with IV heparin Full code Admission and Anticipated Discharge Date Admission Date: November 13, 2019 Subjective Pt is lying in bed in NAD. Currently denies any chest pain or shortness of ren th, dizziness or lightheadedness. Also denies any fever, chills, abd. pain, n/v. Review of Systems Review of Systems: All systems reviewed & are unremarkable except as noted in HPI & below Constitutional: no fever and no chills Respiratory: no cough and no dyspnea Cardiovascular: no chest pain and no palpitations Gastrointestinal: no abdominal pain, no nausea and no vomiting Physical Exam Physical Exam: GENERAL: elderly morbidly obese female lying in bed, in NAD HEENT: NC/AT, EOMI, PERRL, pink palpebral conjunctivae, no ptosis NECK : Supple, short neck, no tenderness CHEST : CTAB no wheezing, rhonchi, crackles HEART : RRR, no obvious murmurs ABDOMEN: + bowel sounds, obese, some distention, nontender to palpation EXTREMITIES : Minimal LE swelling, no LE tenderness, moves extremities spontaneously SKIN: warm, dry NEUROLOGIC : alert and oriented x3, no facial asymmetry, speech flno other gross focality Results & Data Results & Data ([facility]) Vital Signs (Past 12 Hours) Vital Signs Temp Pulse Pulse Pulse Resp BP BP 07/21/20 07:03 36.5 C 76 16 11/13/19 07:00 78 11/13/19 04:28 36.7 C 79 18 11/13/19 02:32 36.8 C 94 H 16 143/70 H 11/13/19 01:30 84 14 130/87 11/13/19 00:30 18 133/94 11/13/19 00:00 84 16 144/96 H 11/12/19 23:30 77 21 161/93 H 11/12/19 22:30 89 16 11/12/19 22:00 87 16 11/12/19 21:33 89 19 181/107 H 11/12/19 21:32 107 H 20 BP Pulse Ox 11/13/19 07:03 124/84 91 11/13/19 07:00 11/13/19 04:28 146/81 H 91 11/13/19 02:32 98 11/13/19 01:30 91 11/13/19 00:30 95 11/13/19 00:00 92 11/12/19 23:30 93 11/12/19 22:30 94 11/12/19 22:00 94 11/12/19 21:33 92 11/12/19 21:32 93 Laboratory Results 11/13/19 11/13/19 11/13/19 Range/Units 07:22 07:10 06:48 WBC (4.8-10.8) K/uL RBC (4.2-5.4) M/uL Hgb (12.0-16.0) g/dL Hct (37-47) % MCV (80-100) fL MCH (25-34) pg MCHC (32-36) g/dL RDW Std Deviation (36.4-46.3) fL RDW Coeff of Jenn (11.5-14.5) % Plt Count (130-400) K/uL MPV (7.4-10.4) fL Immature Gran % (Auto) % Neut % (Auto) % Lymph % (Auto) % [place] % (Auto) % Eos % (Auto) % Baso % (Auto) % Neut # (Auto) (1.4-6.5) K/uL Lymph # (Auto) (1.2-3.4) K/uL [place] # (Auto) (0.11-0.59) K/uL Eos # (Auto) (0-0.5) K/uL Baso # (Auto) (0-0.2) K/uL Immature Gran # (Auto) (0.00-0.02) K/uL PT (9.0-12.0) Seconds INR (0.9-1.1) APTT (21.0-31.0) Seconds PTT Ratio D-Dimer (0-500) ug/L FEU LA PTT Screen Protein C Activity Protein S Activity Antithrombin III Activ Factor V Leiden Mutat Factor V Leiden Interp Sodium (136-145) mmol/L Potassium (3.5-5.1) mmol/L Chloride (98-107) mmol/L Carbon Dioxide (21-32) mmol/L Anion Gap (3-11) BUN (7-18) mg/dl Creatinine (0.6-1.2) mg/dl Est Cr Clr Drug Dosing ml/min Est GFR ( Amer) Est GFR (Non-Af Amer) BUN/Creatinine Ratio (10-20) Glucose (70-99) mg/dl POC Glucose 248 H (70-99) mg/dl Estimat Average Glucose Pending Hemoglobin A1c Pending Calcium (8.5-10.1) mg/dl Magnesium (1.8-2.4) mg/dl Total Bilirubin (0.2-1) mg/dl AST (15-37) U/L ALT (12-78) U/L Alkaline Phosphatase (45-117) U/L Troponin I (0-0.045) ng/ml NT-Pro-B Natriuret Pep (0-900) pg/ml Total Protein (6.4-8.2) gm/dl Albumin (3.4-5.0) gm/dl Globulin (2.5-4.0) gm/dl Albumin/Globulin Ratio (0.9-2) Homocysteine Urine Color Urine Appearance (Clear) Urine pH (4.5-7.5) Ur Specific [place] (1.000-1.030) Urine Protein (Negative) Urine Glucose (UA) (Negative) Urine Ketones (Negative) Urine Blood (Negative) Urine Nitrite (Negative) Urine Bilirubin (Negative) Urine Urobilinogen (Negative) Ur Leukocyte Esterase (Negative) Urine WBC (Auto) (0-5) /hpf Urine RBC (Auto) (0-4) /hpf U Hyaline Cast (Auto) (0-5) /lpf U Epithel Cells (Auto) (0-5) /lpf Urine Bacteria (Auto) (Negative) Beta-2-GPI IgG Ab Beta-2-GPI IgM Ab Anti-Cardiolipin IgG Ab Anti-Cardiolipin IgM Ab Hepatitis C Ab Screen Pending Prothrombin Gene Mutate Prothromb Gene Comment 11/13/19 11/13/19 11/13/19 Range/Units 06:48 06:48 06:48 WBC 9.50 (4.8-10.8) K/uL RBC 4.80 (4.2-5.4) M/uL Hgb 13.9 (12.0-16.0) g/dL Hct 42.5 (37-47) % MCV 88.5 (80-100) fL MCH 29.0 (25-34) pg MCHC 32.7 (32-36) g/dL RDW Std Deviation 43.1 (36.4-46.3) fL RDW Coeff of Jenn 13.2 (11.5-14.5) % Plt Count 275 (130-400) K/uL MPV 10.5 H (7.4-10.4) fL Immature Gran % (Auto) 0.3 % Neut % (Auto) 64.3 % Lymph % (Auto) 24.2 % [place] % (Auto) 7.4 % Eos % (Auto) 3.6 % Baso % (Auto) 0.2 % Neut # (Auto) 6.11 (1.4-6.5) K/uL Lymph # (Auto) 2.30 (1.2-3.4) K/uL [place] # (Auto) 0.70 H (0.11-0.59) K/uL Eos # (Auto) 0.34 (0-0.5) K/uL Baso # (Auto) 0.02 (0-0.2) K/uL Immature Gran # (Auto) 0.03 H (0.00-0.02) K/uL PT 11.2 (9.0-12.0) Seconds INR 1.1 (0.9-1.1) APTT 44.1 H (21.0-31.0) Seconds PTT Ratio 1.6 D-Dimer (0-500) ug/L FEU LA PTT Screen Protein C Activity Protein S Activity Antithrombin III Activ Factor V Leiden Mutat Factor V Leiden Interp Sodium 138 (136-145) mmol/L Potassium 3.5 (3.5-5.1) mmol/L Chloride 105 (98-107) mmol/L Carbon Dioxide 26 (21-32) mmol/L Anion Gap 7.0 (3-11) BUN 13 (7-18) mg/dl Creatinine 1.20 (0.6-1.2) mg/dl Est Cr Clr Drug Dosing 46.9 ml/min Est GFR ( Amer) 54.5 Est GFR (Non-Af Amer) 47.1 BUN/Creatinine Ratio 10.7 (10-20) Glucose 235 H (70-99) mg/dl POC Glucose (70-99) mg/dl Estimat Average Glucose Hemoglobin A1c Calcium 8.8 (8.5-10.1) mg/dl Magnesium 2.1 (1.8-2.4) mg/dl Total Bilirubin (0.2-1) mg/dl AST (15-37) U/L ALT (12-78) U/L Alkaline Phosphatase (45-117) U/L Troponin I (0-0.045) ng/ml NT-Pro-B Natriuret Pep (0-900) pg/ml Total Protein (6.4-8.2) gm/dl Albumin (3.4-5.0) gm/dl Globulin (2.5-4.0) gm/dl Albumin/Globulin Ratio (0.9-2) Homocysteine Urine Color Urine Appearance (Clear) Urine pH (4.5-7.5) Ur Specific [place] (1.000-1.030) Urine Protein (Negative) Urine Glucose (UA) (Negative) Urine Ketones (Negative) Urine Blood (Negative) Urine Nitrite (Negative) Urine Bilirubin (Negative) Urine Urobilinogen (Negative) Ur Leukocyte Esterase (Negative) Urine WBC (Auto) (0-5) /hpf Urine RBC (Auto) (0-4) /hpf U Hyaline Cast (Auto) (0-5) /lpf U Epithel Cells (Auto) (0-5) /lpf Urine Bacteria (Auto) (Negative) Beta-2-GPI IgG Ab Beta-2-GPI IgM Ab Anti-Cardiolipin IgG Ab Anti-Cardiolipin IgM Ab Hepatitis C Ab Screen Prothrombin Gene Mutate Prothromb Gene Comment 11/13/19 11/13/19 11/13/19 Range/Units 02:19 00:26 00:26 WBC (4.8-10.8) K/uL RBC (4.2-5.4) M/uL Hgb (12.0-16.0) g/dL Hct (37-47) % MCV (80-100) fL MCH (25-34) pg MCHC (32-36) g/dL RDW Std Deviation (36.4-46.3) fL RDW Coeff of Jenn (11.5-14.5) % Plt Count (130-400) K/uL MPV (7.4-10.4) fL Immature Gran % (Auto) % Neut % (Auto) % Lymph % (Auto) % [place] % (Auto) % Eos % (Auto) % Baso % (Auto) % Neut # (Auto) (1.4-6.5) K/uL Lymph # (Auto) (1.2-3.4) K/uL [place] # (Auto) (0.11-0.59) K/uL Eos # (Auto) (0-0.5) K/uL Baso # (Auto) (0-0.2) K/uL Immature Gran # (Auto) (0.00-0.02) K/uL PT (9.0-12.0) Seconds INR (0.9-1.1) APTT (21.0-31.0) Seconds PTT Ratio D-Dimer (0-500) ug/L FEU LA PTT Screen Protein C Activity Protein S Activity Pending Antithrombin III Activ Factor V Leiden Mutat Factor V Leiden Interp Sodium (136-145) mmol/L Potassium (3.5-5.1) mmol/L Chloride (98-107) mmol/L Carbon Dioxide (21-32) mmol/L Anion Gap (3-11) BUN (7-18) mg/dl Creatinine (0.6-1.2) mg/dl Est Cr Clr Drug Dosing ml/min Est GFR ( Amer) Est GFR (Non-Af Amer) BUN/Creatinine Ratio (10-20) Glucose (70-99) mg/dl POC Glucose 240 H (70-99) mg/dl Estimat Average Glucose Hemoglobin A1c Calcium (8.5-10.1) mg/dl Magnesium (1.8-2.4) mg/dl Total Bilirubin (0.2-1) mg/dl AST (15-37) U/L ALT (12-78) U/L Alkaline Phosphatase (45-117) U/L Troponin I (0-0.045) ng/ml NT-Pro-B Natriuret Pep (0-900) pg/ml Total Protein (6.4-8.2) gm/dl Albumin (3.4-5.0) gm/dl Globulin (2.5-4.0) gm/dl Albumin/Globulin Ratio (0.9-2) Homocysteine Pending Urine Color Urine Appearance (Clear) Urine pH (4.5-7.5) Ur Specific [place] (1.000-1.030) Urine Protein (Negative) Urine Glucose (UA) (Negative) Urine Ketones (Negative) Urine Blood (Negative) Urine Nitrite (Negative) Urine Bilirubin (Negative) Urine Urobilinogen (Negative) Ur Leukocyte Esterase (Negative) Urine WBC (Auto) (0-5) /hpf Urine RBC (Auto) (0-4) /hpf U Hyaline Cast (Auto) (0-5) /lpf U Epithel Cells (Auto) (0-5) /lpf Urine Bacteria (Auto) (Negative) Beta-2-GPI IgG Ab Pending Beta-2-GPI IgM Ab Pending Anti-Cardiolipin IgG Ab Anti-Cardiolipin IgM Ab Hepatitis C Ab Screen Prothrombin Gene Mutate Prothromb Gene Comment 11/13/19 11/12/19 11/12/19 Range/Units 00:26 20:10 20:10 WBC (4.8-10.8) K/uL RBC (4.2-5.4) M/uL Hgb (12.0-16.0) g/dL Hct (37-47) % MCV (80-100) fL MCH (25-34) pg MCHC (32-36) g/dL RDW Std Deviation (36.4-46.3) fL RDW Coeff of Jenn (11.5-14.5) % Plt Count (130-400) K/uL MPV (7.4-10.4) fL Immature Gran % (Auto) % Neut % (Auto) % Lymph % (Auto) % [place] % (Auto) % Eos % (Auto) % Baso % (Auto) % Neut # (Auto) (1.4-6.5) K/uL Lymph # (Auto) (1.2-3.4) K/uL [place] # (Auto) (0.11-0.59) K/uL Eos # (Auto) (0-0.5) K/uL Baso # (Auto) (0-0.2) K/uL Immature Gran # (Auto) (0.00-0.02) K/uL PT (9.0-12.0) Seconds INR (0.9-1.1) APTT 24.8 (21.0-31.0) Seconds PTT Ratio 0.9 D-Dimer (0-500) ug/L FEU LA PTT Screen Pending Protein C Activity Pending Protein S Activity Antithrombin III Activ Pending Factor V Leiden Mutat Pending Factor V Leiden Interp Pending Sodium (136-145) mmol/L Potassium (3.5-5.1) mmol/L Chloride (98-107) mmol/L Carbon Dioxide (21-32) mmol/L Anion Gap (3-11) BUN (7-18) mg/dl Creatinine (0.6-1.2) mg/dl Est Cr Clr Drug Dosing ml/min Est GFR ( Amer) Est GFR (Non-Af Amer) BUN/Creatinine Ratio (10-20) Glucose (70-99) mg/dl POC Glucose (70-99) mg/dl Estimat Average Glucose Hemoglobin A1c Calcium (8.5-10.1) mg/dl Magnesium (1.8-2.4) mg/dl Total Bilirubin (0.2-1) mg/dl AST (15-37) U/L ALT (12-78) U/L Alkaline Phosphatase (45-117) U/L Troponin I (0-0.045) ng/ml NT-Pro-B Natriuret Pep (0-900) pg/ml Total Protein (6.4-8.2) gm/dl Albumin (3.4-5.0) gm/dl Globulin (2.5-4.0) gm/dl Albumin/Globulin Ratio (0.9-2) Homocysteine Urine Color Yellow Urine Appearance Clear (Clear) Urine pH 5.0 (4.5-7.5) Ur Specific [place] 1.024 (1.000-1.030) Urine Protein Trace H (Negative) Urine Glucose (UA) Negative (Negative) Urine Ketones Trace H (Negative) Urine Blood Trace H (Negative) Urine Nitrite Negative (Negative) Urine Bilirubin Negative (Negative) Urine Urobilinogen Negative (Negative) Ur Leukocyte Esterase 1+ H (Negative) Urine WBC (Auto) >30 H (0-5) /hpf Urine RBC (Auto) 5-10 H (0-4) /hpf U Hyaline Cast (Auto) 5-10 H (0-5) /lpf U Epithel Cells (Auto) 10-20 H (0-5) /lpf Urine Bacteria (Auto) Negative (Negative) Beta-2-GPI IgG Ab Beta-2-GPI IgM Ab Anti-Cardiolipin IgG Ab Pending Anti-Cardiolipin IgM Ab Pending Hepatitis C Ab Screen Prothrombin Gene Mutate Pending Prothromb Gene Comment Pending 11/12/19 11/12/19 11/12/19 Range/Units 20:10 20:10 20:10 WBC 11.68 H (4.8-10.8) K/uL RBC 5.24 (4.2-5.4) M/uL Hgb 15.6 (12.0-16.0) g/dL Hct 46.2 (37-47) % MCV 88.2 (80-100) fL MCH 29.8 (25-34) pg MCHC 33.8 (32-36) g/dL RDW Std Deviation 42.3 (36.4-46.3) fL RDW Coeff of Jenn 13.1 (11.5-14.5) % Plt Count 276 (130-400) K/uL MPV 10.3 (7.4-10.4) fL Immature Gran % (Auto) 0.2 % Neut % (Auto) 64.8 % Lymph % (Auto) 26.6 % [place] % (Auto) 5.5 % Eos % (Auto) 2.7 % Baso % (Auto) 0.2 % Neut # (Auto) 7.57 H (1.4-6.5) K/uL Lymph # (Auto) 3.11 (1.2-3.4) K/uL [place] # (Auto) 0.64 H (0.11-0.59) K/uL Eos # (Auto) 0.32 (0-0.5) K/uL Baso # (Auto) 0.02 (0-0.2) K/uL Immature Gran # (Auto) 0.02 (0.00-0.02) K/uL PT (9.0-12.0) Seconds INR (0.9-1.1) APTT (21.0-31.0) Seconds PTT Ratio D-Dimer 3590 H* (0-500) ug/L FEU LA PTT Screen Protein C Activity Protein S Activity Antithrombin III Activ Factor V Leiden Mutat Factor V Leiden Interp Sodium 143 (136-145) mmol/L Potassium 4.0 (3.5-5.1) mmol/L Chloride 107 (98-107) mmol/L Carbon Dioxide 28 (21-32) mmol/L Anion Gap 8.0 (3-11) BUN 15 (7-18) mg/dl Creatinine 1.36 H (0.6-1.2) mg/dl Est Cr Clr Drug Dosing 41.5 ml/min Est GFR ( Amer) 46.9 Est GFR (Non-Af Amer) 40.4 BUN/Creatinine Ratio 11.0 (10-20) Glucose 167 H (70-99) mg/dl POC Glucose (70-99) mg/dl Estimat Average Glucose Hemoglobin A1c Calcium 10.0 (8.5-10.1) mg/dl Magnesium 1.5 L (1.8-2.4) mg/dl Total Bilirubin 0.8 (0.2-1) mg/dl AST 40 H (15-37) U/L ALT 56 (12-78) U/L Alkaline Phosphatase 104 (45-117) U/L Troponin I < 0.015 (0-0.045) ng/ml NT-Pro-B Natriuret Pep 62 (0-900) pg/ml Total Protein 8.3 H (6.4-8.2) gm/dl Albumin 3.6 (3.4-5.0) gm/dl Globulin 4.7 H (2.5-4.0) gm/dl Albumin/Globulin Ratio 0.8 L (0.9-2) Homocysteine Urine Color Urine Appearance (Clear) Urine pH (4.5-7.5) Ur Specific [place] (1.000-1.030) Urine Protein (Negative) Urine Glucose (UA) (Negative) Urine Ketones (Negative) Urine Blood (Negative) Urine Nitrite (Negative) Urine Bilirubin (Negative) Urine Urobilinogen (Negative) Ur Leukocyte Esterase (Negative) Urine WBC (Auto) (0-5) /hpf Urine RBC (Auto) (0-4) /hpf U Hyaline Cast (Auto) (0-5) /lpf U Epithel Cells (Auto) (0-5) /lpf Urine Bacteria (Auto) (Negative) Beta-2-GPI IgG Ab Beta-2-GPI IgM Ab Anti-Cardiolipin IgG Ab Anti-Cardiolipin IgM Ab Hepatitis C Ab Screen Prothrombin Gene Mutate Prothromb Gene Comment Medications Administered Current Inpatient Medications Acetaminophen (Tylenol) 650 mg PO Q4H PRN PRN Reason: Pain or Fever Stop: 12/13/19 02:06 Amlodipine Besylate (Norvasc) 2.5 mg PO HS TAMMI Stop: 12/13/19 20:59 Atorvastatin Calcium (Lipitor) 20 mg PO DAILY TAMMI Stop: 12/13/19 08:59 Last Admin: 11/13/19 08:59 Dose: 20 mg Documented by: Dextrose (Dextrose 50%) 25 - 50 ml IV UD PRN; Protocol PRN Reason: Hypoglycemia Protocol Stop: 12/13/19 02:06 Glucagon (Glucagen) 1 mg SQ UD PRN; Protocol PRN Reason: Hypoglycemia Protocol Stop: 12/13/19 02:06 Glucose (Dex4 Glucose) 4 - 8 tabs PO UD PRN; Protocol PRN Reason: Hypoglycemia Protocol Stop: 12/13/19 02:06 Glucose (Glucose 40%) 15 - 30 gm PO UD PRN; Protocol PRN Reason: Hypoglycemia Protocol Stop: 12/13/19 02:06 Hydromorphone HCl (Dilaudid) 0.5 mg IV Q3H PRN PRN Reason: Pain Stop: 11/27/19 02:06 Heparin Sodium/Dextrose (Heparin Sodium/Dextrose) 25,000 units in 500 mls @ 26 mls/hr IV .[id number] TAMMI; Protocol Stop: 12/12/19 23:44 Last Titration: 11/13/19 07:54 Dose: 1,300 units/hr, 26 mls/hr Documented by: Lorazepam (Ativan) 0.5 mg in 1 mls @ 1 mls/min IV Q4H PRN PRN Reason: Anxiety/Agitation Stop: 12/13/19 02:06 Promethazine HCl 12.5 mg/ (Sodium Chloride) 50.5 mls @ 202 mls/hr IV Q6H PRN PRN Reason: Nausea And Vomiting Stop: 12/13/19 02:06 Ceftriaxone Sodium 2,000 mg/ (Dextrose) 70 mls @ 100 mls/hr IV Q24H TAMMI; Latrice col Stop: 11/23/19 05:29 Last Infusion: 11/13/19 06:09 Dose: Infused Documented by: Potassium Chloride/Sodium Chloride (Normal Saline W/20 Meq Kcl) 20 meq in 1,000 mls @ 50 mls/hr IV .Q20H ONE Stop: 11/14/19 00:55 Last Admin: 11/13/19 05:39 Dose: 50 mls/hr Documented by: Insulin Aspart (Novolog Flexpen) 0 units SC ACHS [facility] Stop: 12/13/19 02:06 Last Admin: 11/13/19 08:56 Dose: 6 units Documented by: Insulin Glargine (Lantus Solostar Pen) 10 units SC DAILY [facility] Stop: 12/14/19 08:59 Miscellaneous (Carbohydrates For Hypoglycemia) 15 - 30 gm PO UD PRN PRN Reason: Hypoglycemia Protocol Stop: 12/13/19 02:06 Tramadol HCl (Ultram) 25 - 50 mg PO Q4H PRN PRN Reason: Pain Stop: 12/13/19 02:06 Venlafaxine HCl (Effexor Extended Release) 150 mg PO HS TAMMI Stop: 12/13/19 20:59
--- NOTE | 2019-11-13 09:16 | Hospitalist Progress Note ---
Date of Service November 13, 2019 Assessment & Plan Admission and Anticipated Discharge Date Admission Date: November 13, 2019 Results & Data Results & Data ([facility]) Vital Signs (Past 12 Hours) Vital Signs Temp Pulse Pulse Pulse Resp BP BP 11/13/19 07:03 36.5 C 76 16 11/13/19 07:00 78 11/13/19 04:28 36.7 C 79 18 11/13/19 02:32 36.8 C 94 H 16 143/70 H 11/13/19 01:30 84 14 130/87 11/13/19 00:30 18 133/94 11/13/19 00:00 84 16 144/96 H 11/12/19 23:30 77 21 161/93 H 11/12/19 22:30 89 16 11/12/19 22:00 87 16 11/12/19 21:33 89 19 181/107 H 11/12/19 21:32 107 H 20 BP Pulse Ox 11/13/19 07:03 124/84 91 11/13/19 07:00 11/13/19 04:28 146/81 H 91 11/13/19 02:32 98 11/13/19 01:30 91 11/13/19 00:30 95 11/13/19 00:00 92 11/12/19 23:30 93 11/12/19 22:30 94 11/12/19 22:00 94 11/12/19 21:33 92 11/12/19 21:32 93 Laboratory Results 11/13/19 11/13/19 11/13/19 Range/Units 07:22 07:10 06:48 WBC (4.8-10.8) K/uL RBC (4.2-5.4) M/uL Hgb (12.0-16.0) g/dL Hct (37-47) % MCV (80-100) fL MCH (25-34) pg MCHC (32-36) g/dL RDW Std Deviation (36.4-46.3) fL RDW Coeff of Jenn (11.5-14.5) % Plt Count (130-400) K/uL MPV (7.4-10.4) fL Immature Gran % (Auto) % Neut % (Auto) % Lymph % (Auto) % [place] % (Auto) % Eos % (Auto) % Baso % (Auto) % Neut # (Auto) (1.4-6.5) K/uL Lymph # (Auto) (1.2-3.4) K/uL [place] # (Auto) (0.11-0.59) K/uL Eos # (Auto) (0-0.5) K/uL Baso # (Auto) (0-0.2) K/uL Immature Gran # (Auto) (0.00-0.02) K/uL PT (9.0-12.0) Seconds INR (0.9-1.1) APTT (21.0-31.0) Seconds PTT Ratio D-Dimer (0-500) ug/L FEU LA PTT Screen Protein C Activity Protein S Activity Antithrombin III Activ Factor V Leiden Mutat Factor V Leiden Interp Sodium (136-145) mmol/L Potassium (3.5-5.1) mmol/L Chloride (98-107) mmol/L Carbon Dioxide (21-32) mmol/L Anion Gap (3-11) BUN (7-18) mg/dl Creatinine (0.6-1.2) mg/dl Est Cr Clr Drug Dosing ml/min Est GFR ( Amer) Est GFR (Non-Af Amer) BUN/Creatinine Ratio (10-20) Glucose (70-99) mg/dl POC Glucose 248 H (70-99) mg/dl Estimat Average Glucose Pending Hemoglobin A1c Pending Calcium (8.5-10.1) mg/dl Magnesium (1.8-2.4) mg/dl Total Bilirubin (0.2-1) mg/dl AST (15-37) U/L ALT (12-78) U/L Alkaline Phosphatase (45-117) U/L Troponin I (0-0.045) ng/ml NT-Pro-B Natriuret Pep (0-900) pg/ml Total Protein (6.4-8.2) gm/dl Albumin (3.4-5.0) gm/dl Globulin (2.5-4.0) gm/dl Albumin/Globulin Ratio (0.9-2) Homocysteine Urine Color Urine Appearance (Clear) Urine pH (4.5-7.5) Ur Specific [place] (1.000-1.030) Urine Protein (Negative) Urine Glucose (UA) (Negative) Urine Ketones (Negative) Urine Blood (Negative) Urine Nitrite (Negative) Urine Bilirubin (Negative) Urine Urobilinogen (Negative) Ur Leukocyte Esterase (Negative) Urine WBC (Auto) (0-5) /hpf Urine RBC (Auto) (0-4) /hpf U Hyaline Cast (Auto) (0-5) /lpf U Epithel Cells (Auto) (0-5) /lpf Urine Bacteria (Auto) (Negative) Beta-2-GPI IgG Ab Beta-2-GPI IgM Ab Anti-Cardiolipin IgG Ab Anti-Cardiolipin IgM Ab Hepatitis C Ab Screen Pending Prothrombin Gene Mutate Prothromb Gene Comment 11/13/19 11/13/19 11/13/19 Range/Units 06:48 06:48 06:48 WBC 9.50 (4.8-10.8) K/uL RBC 4.80 (4.2-5.4) M/uL Hgb 13.9 (12.0-16.0) g/dL Hct 42.5 (37-47) % MCV 88.5 (80-100) fL MCH 29.0 (25-34) pg MCHC 32.7 (32-36) g/dL RDW Std Deviation 43.1 (36.4-46.3) fL RDW Coeff of Jenn 13.2 (11.5-14.5) % Plt Count 275 (130-400) K/uL MPV 10.5 H (7.4-10.4) fL Immature Gran % (Auto) 0.3 % Neut % (Auto) 64.3 % Lymph % (Auto) 24.2 % [place] % (Auto) 7.4 % Eos % (Auto) 3.6 % Baso % (Auto) 0.2 % Neut # (Auto) 6.11 (1.4-6.5) K/uL Lymph # (Auto) 2.30 (1.2-3.4) K/uL [place] # (Auto) 0.70 H (0.11-0.59) K/uL Eos # (Auto) 0.34 (0-0.5) K/uL Baso # (Auto) 0.02 (0-0.2) K/uL Immature Gran # (Auto) 0.03 H (0.00-0.02) K/uL PT 11.2 (9.0-12.0) Seconds INR 1.1 (0.9-1.1) APTT 44.1 H (21.0-31.0) Seconds PTT Ratio 1.6 D-Dimer (0-500) ug/L FEU LA PTT Screen Protein C Activity Protein S Activity Antithrombin III Activ Factor V Leiden Mutat Factor V Leiden Interp Sodium 138 (136-145) mmol/L Potassium 3.5 (3.5-5.1) mmol/L Chloride 105 (98-107) mmol/L Carbon Dioxide 26 (21-32) mmol/L Anion Gap 7.0 (3-11) BUN 13 (7-18) mg/dl Creatinine 1.20 (0.6-1.2) mg/dl Est Cr Clr Drug Dosing 46.9 ml/min Est GFR ( Amer) 54.5 Est GFR (Non-Af Amer) 47.1 BUN/Creatinine Ratio 10.7 (10-20) Glucose 235 H (70-99) mg/dl POC Glucose (70-99) mg/dl Estimat Average Glucose Hemoglobin A1c Calcium 8.8 (8.5-10.1) mg/dl Magnesium 2.1 (1.8-2.4) mg/dl Total Bilirubin (0.2-1) mg/dl AST (15-37) U/L ALT (12-78) U/L Alkaline Phosphatase (45-117) U/L Troponin I (0-0.045) ng/ml NT-Pro-B Natriuret Pep (0-900) pg/ml Total Protein (6.4-8.2) gm/dl Albumin (3.4-5.0) gm/dl Globulin (2.5-4.0) gm/dl Albumin/Globulin Ratio (0.9-2) Homocysteine Urine Color Urine Appearance (Clear) Urine pH (4.5-7.5) Ur Specific [place] (1.000-1.030) Urine Protein (Negative) Urine Glucose (UA) (Negative) Urine Ketones (Negative) Urine Blood (Negative) Urine Nitrite (Negative) Urine Bilirubin (Negative) Urine Urobilinogen (Negative) Ur Leukocyte Esterase (Negative) Urine WBC (Auto) (0-5) /hpf Urine RBC (Auto) (0-4) /hpf U Hyaline Cast (Auto) (0-5) /lpf U Epithel Cells (Auto) (0-5) /lpf Urine Bacteria (Auto) (Negative) Beta-2-GPI IgG Ab Beta-2-GPI IgM Ab Anti-Cardiolipin IgG Ab Anti-Cardiolipin IgM Ab Hepatitis C Ab Screen Prothrombin Gene Mutate Prothromb Gene Comment 11/13/19 11/13/19 11/13/19 Range/Units 02:19 00:26 00:26 WBC (4.8-10.8) K/uL RBC (4.2-5.4) M/uL Hgb (12.0-16.0) g/dL Hct (37-47) % MCV (80-100) fL MCH (25-34) pg MCHC (32-36) g/dL RDW Std Deviation (36.4-46.3) fL RDW Coeff of Jenn (11.5-14.5) % Plt Count (130-400) K/uL MPV (7.4-10.4) fL Immature Gran % (Auto) % Neut % (Auto) % Lymph % (Auto) % [place] % (Auto) % Eos % (Auto) % Baso % (Auto) % Neut # (Auto) (1.4-6.5) K/uL Lymph # (Auto) (1.2-3.4) K/uL [place] # (Auto) (0.11-0.59) K/uL Eos # (Auto) (0-0.5) K/uL Baso # (Auto) (0-0.2) K/uL Immature Gran # (Auto) (0.00-0.02) K/uL PT (9.0-12.0) Seconds INR (0.9-1.1) APTT (21.0-31.0) Seconds PTT Ratio D-Dimer (0-500) ug/L FEU LA PTT Screen Protein C Activity Protein S Activity Pending Antithrombin III Activ Factor V Leiden Mutat Factor V Leiden Interp Sodium (136-145) mmol/L Potassium (3.5-5.1) mmol/L Chloride (98-107) mmol/L Carbon Dioxide (21-32) mmol/L Anion Gap (3-11) BUN (7-18) mg/dl Creatinine (0.6-1.2) mg/dl Est Cr Clr Drug Dosing ml/min Est GFR ( Amer) Est GFR (Non-Af Amer) BUN/Creatinine Ratio (10-20) Glucose (70-99) mg/dl POC Glucose 240 H (70-99) mg/dl Estimat Average Glucose Hemoglobin A1c Calcium (8.5-10.1) mg/dl Magnesium (1.8-2.4) mg/dl Total Bilirubin (0.2-1) mg/dl AST (15-37) U/L ALT (12-78) U/L Alkaline Phosphatase (45-117) U/L Troponin I (0-0.045) ng/ml NT-Pro-B Natriuret Pep (0-900) pg/ml Total Protein (6.4-8.2) gm/dl Albumin (3.4-5.0) gm/dl Globulin (2.5-4.0) gm/dl Albumin/Globulin Ratio (0.9-2) Homocysteine Pending Urine Color Urine Appearance (Clear) Urine pH (4.5-7.5) Ur Specific [place] (1.000-1.030) Urine Protein (Negative) Urine Glucose (UA) (Negative) Urine Ketones (Negative) Urine Blood (Negative) Urine Nitrite (Negative) Urine Bilirubin (Negative) Urine Urobilinogen (Negative) Ur Leukocyte Esterase (Negative) Urine WBC (Auto) (0-5) /hpf Urine RBC (Auto) (0-4) /hpf U Hyaline Cast (Auto) (0-5) /lpf U Epithel Cells (Auto) (0-5) /lpf Urine Bacteria (Auto) (Negative) Beta-2-GPI IgG Ab Pending Beta-2-GPI IgM Ab Pending Anti-Cardiolipin IgG Ab Anti-Cardiolipin IgM Ab Hepatitis C Ab Screen Prothrombin Gene Mutate Prothromb Gene Comment 11/13/19 11/12/19 11/12/19 Range/Units 00:26 20:10 20:10 WBC (4.8-10.8) K/uL RBC (4.2-5.4) M/uL Hgb (12.0-16.0) g/dL Hct (37-47) % MCV (80-100) fL MCH (25-34) pg MCHC (32-36) g/dL RDW Std Deviation (36.4-46.3) fL RDW Coeff of Jenn (11.5-14.5) % Plt Count (130-400) K/uL MPV (7.4-10.4) fL Immature Gran % (Auto) % Neut % (Auto) % Lymph % (Auto) % [place] % (Auto) % Eos % (Auto) % Baso % (Auto) % Neut # (Auto) (1.4-6.5) K/uL Lymph # (Auto) (1.2-3.4) K/uL [place] # (Auto) (0.11-0.59) K/uL Eos # (Auto) (0-0.5) K/uL Baso # (Auto) (0-0.2) K/uL Immature Gran # (Auto) (0.00-0.02) K/uL PT (9.0-12.0) Seconds INR (0.9-1.1) APTT 24.8 (21.0-31.0) Seconds PTT Ratio 0.9 D-Dimer (0-500) ug/L FEU LA PTT Screen Pending Protein C Activity Pending Protein S Activity Antithrombin III Activ Pending Factor V Leiden Mutat Pending Factor V Leiden Interp Pending Sodium (136-145) mmol/L Potassium (3.5-5.1) mmol/L Chloride (98-107) mmol/L Carbon Dioxide (21-32) mmol/L Anion Gap (3-11) BUN (7-18) mg/dl Creatinine (0.6-1.2) mg/dl Est Cr Clr Drug Dosing ml/min Est GFR ( Amer) Est GFR (Non-Af Amer) BUN/Creatinine Ratio (10-20) Glucose (70-99) mg/dl POC Glucose (70-99) mg/dl Estimat Average Glucose Hemoglobin A1c Calcium (8.5-10.1) mg/dl Magnesium (1.8-2.4) mg/dl Total Bilirubin (0.2-1) mg/dl AST (15-37) U/L ALT (12-78) U/L Alkaline Phosphatase (45-117) U/L Troponin I (0-0.045) ng/ml NT-Pro-B Natriuret Pep (0-900) pg/ml Total Protein (6.4-8.2) gm/dl Albumin (3.4-5.0) gm/dl Globulin (2.5-4.0) gm/dl Albumin/Globulin Ratio (0.9-2) Homocysteine Urine Color Yellow Urine Appearance Clear (Clear) Urine pH 5.0 (4.5-7.5) Ur Specific [place] 1.024 (1.000-1.030) Urine Protein Trace H (Negative) Urine Glucose (UA) Negative (Negative) Urine Ketones Trace H (Negative) Urine Blood Trace H (Negative) Urine Nitrite Negative (Negative) Urine Bilirubin Negative (Negative) Urine Urobilinogen Negative (Negative) Ur Leukocyte Esterase 1+ H (Negative) Urine WBC (Auto) >30 H (0-5) /hpf Urine RBC (Auto) 5-10 H (0-4) /hpf U Hyaline Cast (Auto) 5-10 H (0-5) /lpf U Epithel Cells (Auto) 10-20 H (0-5) /lpf Urine Bacteria (Auto) Negative (Negative) Beta-2-GPI IgG Ab Beta-2-GPI IgM Ab Anti-Cardiolipin IgG Ab Pending Anti-Cardiolipin IgM Ab Pending Hepatitis C Ab Screen Prothrombin Gene Mutate Pending Prothromb Gene Comment Pending 11/12/19 11/12/19 11/12/19 Range/Units 20:10 20:10 20:10 WBC 11.68 H (4.8-10.8) K/uL RBC 5.24 (4.2-5.4) M/uL Hgb 15.6 (12.0-16.0) g/dL Hct 46.2 (37-47) % MCV 88.2 (80-100) fL MCH 29.8 (25-34) pg MCHC 33.8 (32-36) g/dL RDW Std Deviation 42.3 (36.4-46.3) fL RDW Coeff of Jenn 13.1 (11.5-14.5) % Plt Count 276 (130-400) K/uL MPV 10.3 (7.4-10.4) fL Immature Gran % (Auto) 0.2 % Neut % (Auto) 64.8 % Lymph % (Auto) 26.6 % [place] % (Auto) 5.5 % Eos % (Auto) 2.7 % Baso % (Auto) 0.2 % Neut # (Auto) 7.57 H (1.4-6.5) K/uL Lymph # (Auto) 3.11 (1.2-3.4) K/uL [place] # (Auto) 0.64 H (0.11-0.59) K/uL Eos # (Auto) 0.32 (0-0.5) K/uL Baso # (Auto) 0.02 (0-0.2) K/uL Immature Gran # (Auto) 0.02 (0.00-0.02) K/uL PT (9.0-12.0) Seconds INR (0.9-1.1) APTT (21.0-31.0) Seconds PTT Ratio D-Dimer 3590 H* (0-500) ug/L FEU LA PTT Screen Protein C Activity Protein S Activity Antithrombin III Activ Factor V Leiden Mutat Factor V Leiden Interp Sodium 143 (136-145) mmol/L Potassium 4.0 (3.5-5.1) mmol/L Chloride 107 (98-107) mmol/L Carbon Dioxide 28 (21-32) mmol/L Anion Gap 8.0 (3-11) BUN 15 (7-18) mg/dl Creatinine 1.36 H (0.6-1.2) mg/dl Est Cr Clr Drug Dosing 41.5 ml/min Est GFR ( Amer) 46.9 Est GFR (Non-Af Amer) 40.4 BUN/Creatinine Ratio 11.0 (10-20) Glucose 167 H (70-99) mg/dl POC Glucose (70-99) mg/dl Estimat Average Glucose Hemoglobin A1c Calcium 10.0 (8.5-10.1) mg/dl Magnesium 1.5 L (1.8-2.4) mg/dl Total Bilirubin 0.8 (0.2-1) mg/dl AST 40 H (15-37) U/L ALT 56 (12-78) U/L Alkaline Phosphatase 104 (45-117) U/L Troponin I < 0.015 (0-0.045) ng/ml NT-Pro-B Natriuret Pep 62 (0-900) pg/ml Total Protein 8.3 H (6.4-8.2) gm/dl Albumin 3.6 (3.4-5.0) gm/dl Globulin 4.7 H (2.5-4.0) gm/dl Albumin/Globulin Ratio 0.8 L (0.9-2) Homocysteine Urine Color Urine Appearance (Clear) Urine pH (4.5-7.5) Ur Specific [place] (1.000-1.030) Urine Protein (Negative) Urine Glucose (UA) (Negative) Urine Ketones (Negative) Urine Blood (Negative) Urine Nitrite (Negative) Urine Bilirubin (Negative) Urine Urobilinogen (Negative) Ur Leukocyte Esterase (Negative) Urine WBC (Auto) (0-5) /hpf Urine RBC (Auto) (0-4) /hpf U Hyaline Cast (Auto) (0-5) /lpf U Epithel Cells (Auto) (0-5) /lpf Urine Bacteria (Auto) (Negative) Beta-2-GPI IgG Ab Beta-2-GPI IgM Ab Anti-Cardiolipin IgG Ab Anti-Cardiolipin IgM Ab Hepatitis C Ab Screen Prothrombin Gene Mutate Prothromb Gene Comment Medications Administered Current Inpatient Medications Acetaminophen (Tylenol) 650 mg PO Q4H PRN PRN Reason: Pain or Fever Stop: 12/13/19 02:06 Amlodipine Besylate (Norvasc) 2.5 mg PO HS [facility] Stop: 12/13/19 20:59 Atorvastatin Calcium (Lipitor) 20 mg PO DAILY [facility] Stop: 12/13/19 08:59 Last Admin: 11/13/19 08:59 Dose: 20 mg Documented by: Dextrose (Dextrose 50%) 25 - 50 ml IV UD PRN; Protocol PRN Reason: Hypoglycemia Protocol Stop: 12/13/19 02:06 Glucagon (Glucagen) 1 mg SQ UD PRN; Protocol PRN Reason: Hypoglycemia Protocol Stop: 12/13/19 02:06 Glucose (Dex4 Glucose) 4 - 8 tabs PO UD PRN; Protocol PRN Reason: Hypoglycemia Protocol Stop: 12/13/19 02:06 Glucose (Glucose 40%) 15 - 30 gm PO UD PRN; Protocol PRN Reason: Hypoglycemia Protocol Stop: 12/13/19 02:06 Hydromorphone HCl (Dilaudid) 0.5 mg IV Q3H PRN PRN Reason: Pain Stop: 11/27/19 02:06 Heparin Sodium/Dextrose (Heparin Sodium/Dextrose) 25,000 units in 500 mls @ 26 mls/hr IV .[id number] [facility]; Protocol Stop: 12/12/19 23:44 Last Titration: 11/13/19 07:54 Dose: 1,300 units/hr, 26 mls/hr Documented by: Lorazepam (Ativan) 0.5 mg in 1 mls @ 1 mls/min IV Q4H PRN PRN Reason: Anxiety/Agitation Stop: 12/13/19 02:06 Promethazine HCl 12.5 mg/ (Sodium Chloride) 50.5 mls @ 202 mls/hr IV Q6H PRN PRN Reason: Nausea And Vomiting Stop: 12/13/19 02:06 Ceftriaxone Sodium 2,000 mg/ (Dextrose) 70 mls @ 100 mls/hr IV Q24H [facility]; Protocol Stop: 11/23/19 05:29 Last Infusion: 11/13/19 06:09 Dose: Infused Documented by: Potassium Chloride/Sodium Chloride (Normal Saline W/20 Meq Kcl) 20 meq in 1,000 mls @ 50 mls/hr IV .Q20H [facility] Stop: 11/14/19 00:55 Last Admin: 11/13/19 05:39 Dose: 50 mls/hr Documented by: Insulin Aspart (Novolog Flexpen) 0 units SC ACHS [facility] Stop: 12/13/19 02:06 Last Admin: 11/13/19 08:56 Dose: 6 units Documented by: Insulin Glargine (Lantus Solostar Pen) 10 units SC DAILY [facility] Stop: 12/14/19 08:59 Miscellaneous (Carbohydrates For Hypoglycemia) 15 - 30 gm PO UD PRN PRN Reason: Hypoglycemia Protocol Stop: 12/13/19 02:06 Tramadol HCl (Ultram) 25 - 50 mg PO Q4H PRN PRN Reason: Pain Stop: 12/13/19 02:06 Venlafaxine HCl (Effexor Extended Release) 150 mg PO HS [facility] Stop: 12/13/19 20:59
[2019-11-13 09:49] LABS: Estimated Average Glucose 249 mg/dl; Hemoglobin A1C 10.3 % (4.5-5.6)
--- NOTE | 2019-11-13 13:27 | Electrocardiogram Report ---
Test Reason : Blood Pressure : / mmHG Vent. Rate : 093 BPM Atrial Rate : 093 BPM P-R Int : 134 ms QRS Dur : 076 ms QT Int : 340 ms P-R-T Axes : 033 050 053 degrees QTc Int : 422 ms Normal sinus rhythm Low voltage QRS Nonspecific ST abnormality Abnormal ECG When compared with ECG of 03-DEC-1997 19:37, Nonspecific T wave abnormality now evident in Anterior leads Confirmed by Caleb Mcbride ([id number]) on 11/13/2019 1:26:36 PM Referred By: REFERRED SELF Confirmed By:Caleb Mcbride
[2019-11-13 15:37] LABS: Partial Thromboplastin Ratio 2.8
[2019-11-13 15:56] LABS: Partial Thromboplastin Time 77.8 Seconds (21.0-31.0)
[2019-11-13] MEDS: glipiZIDE 5 MG TAB PO SCH (17:35)
[2019-11-13] MEDS: AMLODIPINE BESYLATE 5 MG TAB PO SCH (20:21)
[2019-11-13] MEDS: VENLAFAXINE HCL XR 150 MG CAPXR PO SCH (20:21)
[2019-11-13 22:34] LABS: Partial Thromboplastin Ratio 1.9
[2019-11-13 22:42] LABS: Partial Thromboplastin Time 54.2 Seconds (21.0-31.0)
[2019-11-13] MEDS: INSULIN GLARGINE SOLOSTAR 100 UNITS/ML 3 ML PEN SC SCH (23:08)
[2019-11-14] MEDS: cefTRIAXone SODIUM 2,000 MG in DEXTROSE 5% 50 ML IV SCH (05:25)
[2019-11-14 07:16] LABS: Partial Thromboplastin Ratio 1.9
[2019-11-14 07:21] LABS: Partial Thromboplastin Time 54.3 Seconds (21.0-31.0)
[2019-11-14] MEDS: glipiZIDE 5 MG TAB PO SCH (08:24)
[2019-11-14] MEDS: ATORVASTATIN 20 MG TAB PO SCH (08:26)
[2019-11-14] MEDS: INSULIN GLARGINE SOLOSTAR 100 UNITS/ML 3 ML PEN SC SCH ×2 (08:26→20:38)
[2019-11-14] MEDS ORDERED: INSULIN GLARGINE SOLOSTAR 100 UNITS/ML 3 ML PEN SC SCH (09:00)
--- NOTE | 2019-11-14 15:13 | Hospitalist Progress Note ---
Date of Service November 14, 2019 Assessment & Plan (1) Pulmonary emboli: First occurrence and unprovoked event Has been sedentary with obesity No DVT in bilateral legs Awaiting hypercoagulable work-up results Has been on heparin Discussed with Dr. Shrestha-we will start to walk before discharge If antiphospholipid antibodies are positive dental work has to be discontinued Usual duration will lifelong pending further reevaluation in 6 months by the PCP/care provider Hypertension, slightly elevated secondary discomfort Amlodipine daily while above BP meds on hold due to kidney dysfunction. ARF, mild clinical dehydration given ketonuria Secondary to dehydration MOISES inhibitor and hydrochlorothiazide were on hold Kidney function is normalized We will restart medication except hydrochlorothiazide DM 2 , was on oral medications, was well-controlled as of last hemoglobin A1c of 2017 Hemoglobin [id number] at 10.3 Diabetic education was given and the patient will have metformin and glipizide for her diabetes She is going to work on weight and will maintain diabetic diet Anxiety/mood disorder, at baseline Complicated UTI, no sepsis Urine culture has been negative We will discontinue ceftriaxone DVT prophylaxis with IV heparin Full code Discussed with the patient Likely discharge tomorrow Admission and Anticipated Discharge Date Admission Date: November 12, 2019 Subjective 11/14/2019 The patient was seen and examined in medical telemetry unit She is obese and denies any shortness of breath at rest today Denies any chest pain, palpitation, cough or hemoptysis Denies any pain in the legs Review of Systems Review of Systems: All systems reviewed and are unremarkable except as noted below Physical Exam Physical Exam: Lying in bed comfortably Constitutional: well developed, well nourished and + obese; no acute distress and not ill appearing Eyes: PERRL, conjunctivae normal, anicteric sclerae ENMT: external ear and nose normal, oropharynx normal Neck: trachea midline, no thyromegaly Respiratory: normal respiratory effort; no respiratory distress Auscultation: lungs clear to auscultation bilaterally Cardiovascular: Rate/Rhythm: regular rate and regular rhythm Heart Sounds: no murmur Extremities: + edema (Trace edema bilaterally) Gastrointestinal (Abdomen): Inspection/Auscultation: abdomen normal to inspection and normal bowel sounds Percussion/Palpation: abdomen soft; abdomen nontender Musculoskeletal: No acute arthritis involving any joints Neurologic: moves all extremities Results & Data Results & Data ([facility]) Vital Signs (Past 12 Hours) Vital Signs Temp Pulse Pulse Resp BP BP Pulse Ox 11/14/19 11:35 36.9 C 82 16 124/80 94 11/14/19 07:19 36.8 C 76 16 128/80 92 11/14/19 07:00 77 11/14/19 04:00 36.8 C 80 18 135/66 92 Medications Administered Current Inpatient Medications Acetaminophen (Tylenol) 650 mg PO Q4H PRN PRN Reason: Pain or Fever Stop: 12/13/19 02:06 Amlodipine Besylate (Norvasc) 2.5 mg PO HS [facility] Stop: 12/13/19 20:59 Last Admin: 11/13/19 20:21 Dose: 2.5 mg Documented by: Atorvastatin Calcium (Lipitor) 20 mg PO DAILY [facility] Stop: 12/13/19 08:59 Last Admin: 11/14/19 08:26 Dose: 20 mg Documented by: Dextrose (Dextrose 50%) 25 - 50 ml IV UD PRN; Protocol PRN Reason: Hypoglycemia Protocol Stop: 12/13/19 02:06 Glipizide (Glucotrol) 5 mg PO DAILY@0800 [facility] Stop: 12/13/19 16:59 Last Admin: 11/14/19 08:24 Dose: 5 mg Documented by: Glucagon (Glucagen) 1 mg SQ UD PRN; Protocol PRN Reason: Hypoglycemia Protocol Stop: 12/13/19 02:06 Glucose (Dex4 Glucose) 4 - 8 tabs PO UD PRN; Protocol PRN Reason: Hypoglycemia Protocol Stop: 12/13/19 02:06 Glucose (Glucose 40%) 15 - 30 gm PO UD PRN; Protocol PRN Reason: Hypoglycemia Protocol Stop: 12/13/19 02:06 Hydromorphone HCl (Dilaudid) 0.5 mg IV Q3H PRN PRN Reason: Pain Stop: 11/27/19 02:06 Heparin Sodium/Dextrose (Heparin Sodium/Dextrose) 25,000 units in 500 mls @ 23 mls/hr IV .[id number] [facility]; Protocol Stop: 12/12/19 23:44 Last Titration: 11/14/19 07:22 Dose: 1,150 units/hr, 23 mls/hr Documented by: Lorazepam (Ativan) 0.5 mg in 1 mls @ 1 mls/min IV Q4H PRN PRN Reason: Anxiety/Agitation Stop: 12/13/19 02:06 Promethazine HCl 12.5 mg/ (Sodium Chloride) 50.5 mls @ 202 mls/hr IV Q6H PRN PRN Reason: Nausea And Vomiting Stop: 12/13/19 02:06 Ceftriaxone Sodium 2,000 mg/ (Dextrose) 70 mls @ 100 mls/hr IV Q24H [facility]; Protocol Stop: 11/23/19 05:29 Last Infusion: 11/14/19 06:09 Dose: Infused Documented by: Insulin Glargine (Lantus Solostar Pen) 10 units SC BID [facility] Stop: 12/13/19 22:59 Last Admin: 11/14/19 08:26 Dose: 10 units Documented by: Miscellaneous (Carbohydrates For Hypoglycemia) 15 - 30 gm PO UD PRN PRN Reason: Hypoglycemia Protocol Stop: 12/13/19 02:06 Tramadol HCl (Ultram) 25 - 50 mg PO Q4H PRN PRN Reason: Pain Stop: 12/13/19 02:06 Venlafaxine HCl (Effexor Extended Release) 150 mg PO HS [facility] Stop: 12/13/19 20:59 Last Admin: 11/13/19 20:21 Dose: 150 mg Documented by:
[2019-11-14] MEDS ORDERED: WARFARIN SOD 7.5 MG TAB PO ONE (17:00)
[2019-11-14] MEDS: HEPARIN SODIUM/DEXTROSE 25,000 UNITS/500 ML BAG IV SCH (19:22)
[2019-11-14] MEDS: VENLAFAXINE HCL XR 150 MG CAPXR PO SCH (20:37)
[2019-11-14] MEDS: AMLODIPINE BESYLATE 5 MG TAB PO SCH (20:37)
[2019-11-15] MEDS: cefTRIAXone SODIUM 2,000 MG in DEXTROSE 5% 50 ML IV SCH (05:50)
[2019-11-15 05:54] LABS: INR 1.1 (0.9-1.1); Prothrombin Time 11.4 Seconds (9.0-12.0)
[2019-11-15] MEDS: ATORVASTATIN 20 MG TAB PO SCH (07:58)
[2019-11-15] MEDS: INSULIN GLARGINE SOLOSTAR 100 UNITS/ML 3 ML PEN SC SCH (07:58)
[2019-11-15] MEDS: glipiZIDE 5 MG TAB PO SCH (07:58)
--- NOTE | 2019-11-15 12:20 | Hospitalist Progress Note ---
Date of Service November 15, 2019 Assessment & Plan (1) Pulmonary emboli: First occurrence and unprovoked event Has been sedentary with obesity No DVT in bilateral legs Awaiting hypercoagulable work-up results Has been on heparin Discussed with Dr. Shrestha-we will start to walk before discharge If antiphospholipid antibodies are positive dental work has to be discontinued Usual duration will lifelong pending further reevaluation in 6 months by the PCP/care provider Will discharge home this afternoon on Lovenox and Coumadin Coagulation clinic notified Hypertension, slightly elevated secondary discomfort Amlodipine daily while above BP meds on hold due to kidney dysfunction. Blood pressure remains controlled ARF, mild clinical dehydration given ketonuria Secondary to dehydration MOISES inhibitor and hydrochlorothiazide were on hold Kidney function is normalized We will restart medication except hydrochlorothiazide DM 2 , was on oral medications, was well-controlled as of last hemoglobin A1c of 7 2017 Hemoglobin [id number] at 10.3 Diabetic education was given and the patient will have metformin and glipizide for her diabetes She is going to work on weight and will maintain diabetic diet Anxiety/mood disorder, at baseline Complicated UTI, no sepsis Urine culture has been negative We will discontinue ceftriaxone DVT prophylaxis with IV heparin Full code Discussed with the patient and the daughter Discharged home this afternoon Admission and Anticipated Discharge Date Admission Date: November 12, 2019 Subjective 11/14/2019 The patient was seen and examined in medical telemetry unit She is obese and denies any shortness of breath at rest today Denies any chest pain, palpitation, cough or hemoptysis Denies any pain in the legs 11/15/2019 The patient was seen and examined in medical telemetry unit She has been feeling a lot better and denies any symptoms No cough, palpitation, shortness of breath or hemoptysis She has been ambulating in the room and hallway without any symptoms Review of Systems Review of Systems: All systems reviewed and are unremarkable except as noted below Physical Exam Physical Exam: Lying in bed comfortably Constitutional: well developed, well nourished and + obese; no acute distress and not ill appearing Eyes: PERRL, conjunctivae normal, anicteric sclerae ENMT: external ear and nose normal, oropharynx normal Neck: trachea midline, no thyromegaly Respiratory: normal respiratory effort; no respiratory distress Auscultation: lungs clear to auscultation bilaterally Cardiovascular: Rate/Rhythm: regular rate and regular rhythm Heart Sounds: no murmur Extremities: + edema (Trace edema bilaterally) Gastrointestinal (Abdomen): Inspection/Auscultation: abdomen normal to inspection and normal bowel sounds Percussion/Palpation: abdomen soft; abdomen nontender Musculoskeletal: No acute arthritis involving any joints Neurologic: moves all extremities Results & Data Results & Data ([facility]) Vital Signs (Past 12 Hours) Vital Signs Temp Pulse Pulse Resp BP BP Pulse Ox 11/15/19 11:44 36.7 C 80 18 122/76 95 11/15/19 07:31 36.6 C 59 L 16 125/74 96 11/15/19 07:11 83 11/15/19 04:00 36.6 C 77 18 121/79 94 Medications Administered Current Inpatient Medications Acetaminophen (Tylenol) 650 mg PO Q4H PRN PRN Reason: Pain or Fever Stop: 12/13/19 02:06 Amlodipine Besylate (Norvasc) 2.5 mg PO HS TAMMI Stop: 12/13/19 20:59 Last Admin: 11/14/19 20:37 Dose: 2.5 mg Documented by: Atorvastatin Calcium (Lipitor) 20 mg PO DAILY TAMMI Stop: 12/13/19 08:59 Last Admin: 11/15/19 07:58 Dose: 20 mg Documented by: Dextrose (Dextrose 50%) 25 - 50 ml IV UD PRN; Protocol PRN Reason: Hypoglycemia Protocol Stop: 12/13/19 02:06 Enoxaparin Sodium (Lovenox) 100 mg SQ ONE ONE Stop: 11/15/19 16:01 Glipizide (Glucotrol) 5 mg PO DAILY@0800 TAMMI Stop: 12/13/19 16:59 Last Admin: 11/15/19 07:58 Dose: 5 mg Documented by: Glucagon (Glucagen) 1 mg SQ UD PRN; Protocol PRN Reason: Hypoglycemia Protocol Stop: 12/13/19 02:06 Glucose (Dex4 Glucose) 4 - 8 tabs PO UD PRN; Protocol PRN Reason: Hypoglycemia Protocol Stop: 12/13/19 02:06 Glucose (Glucose 40%) 15 - 30 gm PO UD PRN; Protocol PRN Reason: Hypoglycemia Protocol Stop: 12/13/19 02:06 Hydromorphone HCl (Dilaudid) 0.5 mg IV Q3H PRN PRN Reason: Pain Stop: 11/27/19 02:06 Lorazepam (Ativan) 0.5 mg in 1 mls @ 1 mls/min IV Q4H PRN PRN Reason: Anxiety/Agitation Stop: 12/13/19 02:06 Promethazine HCl 12.5 mg/ (Sodium Chloride) 50.5 mls @ 202 mls/hr IV Q6H PRN PRN Reason: Nausea And Vomiting Stop: 12/13/19 02:06 Ceftriaxone Sodium 2,000 mg/ (Dextrose) 70 mls @ 100 mls/hr IV Q24H TAMMI; Protocol Stop: 11/23/19 05:29 Last Infusion: 11/15/19 06:42 Dose: Infused Documented by: Insulin Glargine (Lantus Solostar Pen) 10 units SC BID [facility] Stop: 12/13/19 22:59 Last Admin: 11/15/19 07:58 Dose: 10 units Documented by: Miscellaneous (Carbohydrates For Hypoglycemia) 15 - 30 gm PO UD PRN PRN Reason: Hypoglycemia Protocol Stop: 12/13/19 02:06 Tramadol HCl (Ultram) 25 - 50 mg PO Q4H PRN PRN Reason: Pain Stop: 12/13/19 02:06 Venlafaxine HCl (Effexor Extended Release) 150 mg PO HS TAMMI Stop: 12/13/19 20:59 Last Admin: 11/14/19 20:37 Dose: 150 mg Documented by: Warfarin Sodium (Coumadin) 7.5 mg PO DAILY@1600 TAMMI Stop: 12/15/19 15:59
[2019-11-15] MEDS ORDERED: ENOXAPARIN 100 MG/1ML SYR SQ ONE (16:00)
[2019-11-15] MEDS ORDERED: WARFARIN SOD 7.5 MG TAB PO SCH (16:00)
[2019-11-16 07:23] LABS: B2 Glycoprotein IgG 15 SGU (<=20); B2 Glycoprotein IgM <9 SMU (<=20)
--- NOTE | 2019-11-16 07:46 | Discharge Summary ---
Date of Service November 16, 2019 Admission HPI Per Admitting Provider History obtained from patient, family, and records. Medical history significant for hypertension, hyperlipidemia, DM 2 on oral medications, anxiety/mood disorder as per records, past tobacco abuse. Patient short of breath the last week especially on exertion with back pain going to her shoulder blades. Usual dry cough symptoms without flulike symptoms. Feeling off. Patient with bladder discomfort symptoms without fever chills for about a few weeks. No headache. Not moving a lot at home as per patient secondary to pandemic. Patient brought by daughter to the emergency room. 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 Admission Exam Per Admitting Provider Physical Exam: GENERAL: Slightly anxious, morbidly obese, no respiratory distress SKIN: Normal color, warm HEENT: Bespectacled, [place] palpebral conjunctivae, no ptosis, dry buccal mucosa NECK : Supple, short neck, no tenderness CHEST : CTA, no tenderness HEART : RRR, no obvious murmurs ABDOMEN: Some distention, nontender EXTREMITIES : Minimal LE swelling, no LE tenderness, no other conspicuous deformities noted NEUROLOGIC : Coherent, no facial asymmetry, no other gross focality Principal Diagnosis Acute pulmonary emboli, hypertension, type 2 diabetes, anxiety/depression Discharge Exam Constitutional well developed, well nourished and + obese; no acute distress and not ill appearing Eyes PERRL, conjunctivae normal, anicteric sclerae ENMT external ear and nose normal, oropharynx normal Neck trachea midline, no thyromegaly Respiratory normal respiratory effort; no respiratory distress Auscultation: lungs clear to auscultation bilaterally Cardiovascular Rate/Rhythm: regular rate and regular rhythm Heart Sounds: no murmur Extremities: + edema (Trace edema bilaterally) Gastrointestinal (Abdomen) Inspection/Auscultation: abdomen normal to inspection and normal bowel sounds Percussion/Palpation: abdomen soft; abdomen nontender Neurologic moves all extremities Discharge Data Allergies Allergy/AdvReac Type Severity Reaction Status Date / Time No Known Allergies Allergy Unverified 11/12/19 20:22 Consultations 11/12/19 22:46 ED Decision to Admit Stat Ordered Studies 11/12/19 21:02 CT angio chest PE protocol Urgent 11/13/19 02:07 US venous doppler LE Routine Hospital Course (1) Pulmonary emboli: First occurrence and unprovoked event Has been sedentary with obesity No DVT in bilateral legs Awaiting hypercoagulable work-up results Has been on heparin Discussed with Dr. Shrestha-we will start to walk before discharge If antiphospholipid antibodies are positive dental work has to be discontinued Usual duration will lifelong pending further reevaluation in 6 months by the PCP/care provider Will discharge home this afternoon on Lovenox and Coumadin Coagulation clinic notified Hypertension, slightly elevated secondary discomfort Amlodipine daily while above BP meds on hold due to kidney dysfunction. Blood pressure remains controlled ARF, mild clinical dehydration given ketonuria Secondary to dehydration MOISES inhibitor and hydrochlorothiazide were on hold Kidney function is normalized We will restart medication except hydrochlorothiazide DM 2 , was on oral medications, was well-controlled as of last hemoglobin A1c of 7 2017 Hemoglobin [id number] at 10.3 Diabetic education was given and the patient will have metformin and glipizide for her diabetes She is going to work on weight and will maintain diabetic diet Anxiety/mood disorder, at baseline Complicated UTI, no sepsis Urine culture has been negative We will discontinue ceftriaxone DVT prophylaxis with IV heparin Full code Discussed with the patient and the daughter Discharged home this afternoon Total Time Total Time Spent Total Time Spent (In Minutes): 35 minutes Total Time Includes: Examination of the Patient, Discharge Planning, Medication Reconciliation and Communication With Other Providers Discharge Plan Discharge Items Patient Disposition: Home - Self-Care Reason For Visit: PE Discharge Diagnosis: Acute pulmonary emboli, hypertension, type 2 diabetes, anxiety/depression Condition on Discharge: Good Activity: Resume your previous activity Non-emergency contact: Primary Care Provider Call non-emergency contact if: you have any medication questions and your symptoms worsen Follow-up/Referrals: Nruia Ward PA-C [Primary Care Provider] - 11/20/19 12:00 pm (Your appointment is with Dr. Franco at the [facility]. You will be called for an appointment with coagulation clinic tomorrow that is 11/16/2019) Diet: Carb Consistent or DM2 and Heart Healthy Addtl Attending Provider Instructions: Please avoid any strenuous exercise and trauma Start Lovenox every 12 hours from tomorrow morning and continue taking Coumadin as advised. Take your Coumadin regularly and have blood checked for INR as advised by the coagulation clinic Addtl Industrial Machine Assembler Provider Instructions: [place] [facility] clinic will call you for a blood test tomorrow Pending Studies at Discharge: Yes Studies:: Hypercoagulable work-up Stand-Alone Forms: [facility], Smoking Cessation Medications and DC Order Prescriptions: New warfarin [Coumadin] 7.5 mg Tablet 7.5 mg PO DAILY@1600 15 Days Qty: 15 RF: 0 glipizide 5 mg Tablet 5 mg PO DAILY@0800 30 Days Qty: 30 RF: 0 enoxaparin [Lovenox] 100 mg/mL syringe 100 mg SQ Q12H Qty: 6 RF: 0 Continued atorvastatin 20 mg Tablet 20 mg PO DAILY RF: 0 venlafaxine 150 mg Capsule,Extended Release 24hr 150 mg PO DAILY RF: 0 lisinopril-hydrochlorothiazide 20-25 mg Tablet 1 - 2 tab PO DAILY RF: 0 Discharge Orders: Discharge Order (Routine); Ordered 11/15/19 Ordered By: Bar Shaw/Other Patient Handouts: High Blood Sugar (Hyperglycemia), Hypoglycemia (Low Blood Sugar), Managing Type 2 Diabetes, Diabetes: Meal Planning Admission Data Admit Date/Time: 11/12/19 23:48 Attending Provider: Bar Robertson Admit Provider: Abdiel Arevalo Primary Care Provider: Nuria Ward Other Providers: Abdiel Arevalo ; Ric Figueredo ; [facility] Other Interventions: Discharge Summary Assessment (RN) Last Done: 11/15/19 15:51 DC Date/Time DO NOT enter until pt leaves facility: 11/15/19 16:52
[2019-11-17 23:39] LABS: Anti Cardiolipin Ab IgG <14 GPL; Anti Cardiolipin Ab IgM <12 MPL; Anti-Thrombin III Activity 107 % normal (80-135); PTT LA Screen 35 sec (<=40); Protein S Functional(Activity) 87 % (60-140)
[2019-11-21 07:13] LABS: B2 Glycoprotein IgA 12 SAU (<=20); B2 Glycoprotein IgG 18 SGU (<=20); B2 Glycoprotein IgM <9 SMU (<=20); Phosphatidylserine IgG <10 U/mL (<10); Phosphatidylserine IgM <25 U/mL (<25)
== END 2019-11-15 16:52 | disposition home or self-care (01) | DRG 176 ==
LOC: ED 16:45 → SUATTDRO 23:48 → 2N 11-13